=== PATIENT | female | born 1955 | race Caucasian/White ===

== ENCOUNTER 2022-04-07 08:41 | Inpatient (IN) ==
--- NOTE | 2022-04-07 09:55 | DR.CONMALE ---
HPI Time Seen Time Seen by Provider: 04/07/22 09:40 Complaint Self Treatment fo Chief Complaint: ZOFRAN Timing Onset of Chief Complaint: 04/02/22 PMH PMH Past Medical History: Yes Past Medical History: Arthritis and Dyslipidemia Past Surgical History: Yes Past Surgical History Comment: BURN SURGERY, TUBAL Family History History of Family Medical Conditions: No Social History Does patient currently use any type of tobacco product: Yes Have you used tobacco products in the last 12 months: Yes Type of Tobacco Use: Cigarettes Does any household member use tobacco: No Alcohol Use: Rarely Do you use any recreational Drugs:: No Lives With: Spouse Lives Where: Home Infectious screening In the last 2 months have you had wt loss of >10#?: NO Have you had fever, night sweats or hemotysis?: No Have you traveled outside the country in the last 6 months?: No Isolation: Droplet PE Vital Signs Vital Signs: Temp Pulse Resp BP BP Pulse Ox O2 Del Method 11/09/18 14:26 161/70 04/07/22 08:43 98.0 F 101 H 20 95/60 96 Room Air ROR Labs Reviewed Result Diagrams: 04/11/22 04:20 04/11/22 04:20 Laboratory: WBC 12.5 X10^3/uL (3.6-10.0) H 04/07/22 10:20 RBC 5.52 X10^6/uL (3.5-5.4) H 04/07/22 10:20 Hgb 15.6 g/dL (12.0-16.0) 04/07/22 10:20 Hct 46.1 % (36.0-47.0) 04/07/22 10:20 MCV 83.6 fL (80.0-100.0) 04/07/22 10:20 MCH 28.2 pg (27.0-34.0) 04/07/22 10:20 MCHC 33.8 g/dL (33.0-35.0) 04/07/22 10:20 RDW 13.4 % (11.6-16.5) 04/07/22 10:20 Plt Count 307 X10^3/uL (150.0-450.0) 04/07/22 10:20 MPV 8.7 fL (7.4-11.0) 04/07/22 10:20 Neut % (Auto) 82.7 % (42.0-75.0) H 04/07/22 10:20 Lymph % (Auto) 11.7 % (21.0-51.0) L 04/07/22 10:20 [place] % (Auto) 5.0 % (0.0-13.0) 04/07/22 10:20 Eos % (Auto) 0.1 % (0.9-2.9) L 04/07/22 10:20 Baso % (Auto) 0.5 % (0.2-1.0) 04/07/22 10:20 Neut # (Auto) 10.3 x10^3/uL (2.2-4.8) H 04/07/22 10:20 Lymph # (Auto) 1.5 X10^3/uL (1.3-2.9) 04/07/22 10:20 [place] # (Auto) 0.6 x10^3/uL (0.3-0.8) 04/07/22 10:20 Eos # (Auto) 0.0 x10^3/uL (0.0-0.2) 04/07/22 10:20 Baso # (Auto) 0.1 X10^3/uL (0.0-0.1) 04/07/22 10:20 Absolute Nucleated RBC 0.1 /100WBC 04/07/22 10:20 Sodium 131 mmol/L (136-145) L 04/07/22 10:20 Corrected Sodium TNP 04/07/22 10:20 Potassium 3.6 mmol/L (3.5-5.1) 04/07/22 10:20 Chloride 95 mmol/L (98-107) L 04/07/22 10:20 Carbon Dioxide 27.1 mmol/L (21-32) 04/07/22 10:20 BUN 20 mg/dL (7-18) H 04/07/22 10:20 Creatinine 1.10 mg/dL (0.55-1.02) H 04/07/22 10:20 Est GFR (MDRD) Af Amer > 60 (>60) 04/07/22 10:20 Est GFR (MDRD) Non-Af 52 (>60) L 04/07/22 10:20 Glucose 96 mg/dL (65-99) 04/07/22 10:20 Calcium 9.1 mg/dL (8.5-10.1) 04/07/22 10:20 Corrected Calcium TNP 04/07/22 10:20 Total Bilirubin 0.60 mg/dL (0.2-1.0) 04/07/22 10:20 AST 22 Units/L (15-37) 04/07/22 10:20 ALT 18 Units/L (12-78) 04/07/22 10:20 Alkaline Phosphatase 98 Units/L (46-116) 04/07/22 10:20 Total Protein 7.9 g/dL (6.4-8.2) 04/07/22 10:20 Albumin 3.6 g/dL (3.4-5.0) 04/07/22 10:20 Globulin 4.3 g/dL (2.5-4.5) 04/07/22 10:20 Albumin/Globulin Ratio 0.8 Ratio (1.1-2.1) L 04/07/22 10:20 Amylase 19 Units/L (25-115) L 04/07/22 10:20 Lipase 51 Units/L (73-393) L 04/07/22 10:20 Specimen Type Clean catch urine 04/07/22 09:57 Urine Color Dark yellow (YELLOW) 04/07/22 09:57 Urine Appearance Hazy (CLEAR) 04/07/22 09:57 Urine pH 6.0 (5.0 - 8.0) 04/07/22 09:57 Ur Specific [place] 1.030 (1.000-1.030) 04/07/22 09:57 Urine Protein 3+ (NEGATIVE) 04/07/22 09:57 Urine Glucose (UA) Negative (NEGATIVE) 04/07/22 09:57 Urine Ketones 3+ (NEGATIVE) 04/07/22 09:57 Urine Blood 3+ (NEGATIVE) 04/07/22 09:57 Urine Nitrite Negative (NEGATIVE) 04/07/22 09:57 Urine Bilirubin 1+ (NEGATIVE) 04/07/22 09:57 Urine Urobilinogen 2+ (NORMAL) 04/07/22 09:57 Ur Leukocyte Esterase Negative (NEGATIVE) 04/07/22 09:57 Urine RBC 5-10 /HPF (0-3) A 04/07/22 09:57 Urine WBC 0-2 /HPF (0-5) 04/07/22 09:57 Ur Squamous Epith Cells Few /HPF (NEGATIVE) 04/07/22 09:57 Urine Bacteria Trace /HPF (NEGATIVE) 04/07/22 09:57 Hyaline Casts Many /LPF (NEGATIVE) 04/07/22 09:57 Urine Mucus Many /HPF (NEGATIVE) 04/07/22 09:57 Ur Culture Indicated? No/not indicated 04/07/22 09:57 SARS-CoV-2 (PCR) Negative (NEGATIVE) 04/07/22 10:57 Influenza Type A (PCR) Negative (NEGATIVE) 04/07/22 10:57 Influenza Type B (PCR) Negative (NEGATIVE) 04/07/22 10:57 RSV (PCR) Negative (NEGATIVE) 04/07/22 10:57 Opioid Opioid Risk Tool Age (Jose L box if 16-45): No Total: 0 Total Score Risk Category: Low Risk Copyright: Umesh MISHRA predicting aberrant behaviors Discharge Plan Discharge Plan Patient Disposition: 09 ADMITTED INPATIENT Condition: Stable
[2022-04-07] MEDS ORDERED: ZOFRAN INJ 4 MG VIAL IVP ONE (10:02)
[2022-04-07] MEDS ORDERED: NS 1,000 ML IV 1,000 ML ONE (10:04)
[2022-04-07] MEDS ORDERED: ZOFRAN INJ 4 MG VIAL ONE (10:04)
[2022-04-07 10:21] LABS: BILIRUBIN,URINE 1+ (NEGATIVE); BLOOD/HEMOGLOBIN,URINE 3+ (NEGATIVE); GLUCOSE, URINE NEGATIVE (NEGATIVE); KETONES,URINE 3+ (NEGATIVE); LEUKOCYTE ESTERASE ,URINE NEGATIVE (NEGATIVE); NITRITES,URINE NEGATIVE (NEGATIVE); PROTEIN,URINE 3+ (NEGATIVE); UROBILINOGEN,URINE 2+ (NORMAL)
[2022-04-07 10:32] LABS: BASOPHILS # (AUTO) 0.1 X10^3/uL (0.0-0.1); BASOPHILS % (AUTO) 0.5 % (0.2-1.0); EOSINOPHILS % (AUTO) 0.1 % (0.9-2.9); HEMATOCRIT 46.1 % (36.0-47.0); HEMOGLOBIN 15.6 g/dL (12.0-16.0); LYMPHOCYTES # (AUTO) 1.5 X10^3/uL (1.3-2.9); LYMPHOCYTES % (AUTO) 11.7 % (21.0-51.0); MEAN CORPUSCULAR HEMOGLOBIN 28.2 pg (27.0-34.0); MEAN CORPUSCULAR HGB CONC 33.8 g/dL (33.0-35.0); MEAN CORPUSCULAR VOLUME 83.6 fL (80.0-100.0); MEAN PLATELET VOLUME 8.7 fL (7.4-11.0); MONOCYTES # (AUTO) 0.6 x10^3/uL (0.3-0.8); NEUTROPHILS # (AUTO) 10.3 x10^3/uL (2.2-4.8); NEUTROPHILS % (AUTO) 82.7 % (42.0-75.0); RED BLOOD COUNT 5.52 X10^6/uL (3.5-5.4); RED CELL DISTRIBUTION WIDTH 13.4 % (11.6-16.5); WHITE BLOOD COUNT 12.5 X10^3/uL (3.6-10.0)
[2022-04-07 10:33] LABS: APPEARANCE,URINE HAZY (CLEAR); COLOR,URINE DARK YELLOW (YELLOW); SQUAMOUS EPITHELIAL CELL,UR FEW /HPF (NEGATIVE)
[2022-04-07 10:34] LABS: BACTERIA,URINE TRACE /HPF (NEGATIVE); HYALINE CASTS, URINE MANY /LPF (NEGATIVE)
--- NOTE | 2022-04-07 10:44 | CT ---
HISTORYAbdominal painSTUDYCT abdomen and pelvis without contrastCOMPARISONNoneTECHNIQUEMultiple axial images of the abdomen and pelvis were obtained from the lung bases to the pubic symphysis without the administration of IV contrast. Dose reduction techniques including Automated Exposure Control (AEC) and adjustment of mA and kV were utilized.FINDINGSThe visualized portions of the lung bases are unremarkable . The liver, spleen, pancreas, kidneys, and adrenal glands are unremarkable in their CT appearance. The gallbladder is unremarkable in its CT appearance . No significant mesenteric lymphadenopathy or stranding can be observed. No free fluid or free air is seen within the abdomen. Multiple air-filled loops of small bowel with scattered air-fluid levels are observed. In addition, distal colonic gas and colonic distension is noted to be present. No definite transition point within the small bowel can be identified. However, soft tissue density within the distal sigmoid colon is noted to be present and underlying mass cannot be excluded. Correlation with recent colonoscopy would be of benefit.. The colon is unremarkable. Specifically, there is no diverticulosis noted within the sigmoid colon. The urinary bladder is grossly unremarkable. The bony structures are grossly intact.IMPRESSIONSoft tissue density within the sigmoid colon is observed with proximal colonic distension and associated small-bowel air-filled loops are noted. Continued evaluation with direct visualization or correlation with recent colonoscopy is requested.Electronically signed by: SHANT EVERETT (Apr 07, 2022 10:42:20)
[2022-04-07 10:45] LABS: ALANINE AMINOTRANSFERASE 18 Units/L (12-78); ALBUMIN 3.6 g/dL (3.4-5.0); ALKALINE PHOSPHATASE 98 Units/L (46-116); AMYLASE 19 Units/L (25-115); ASPARTATE AMINO TRANSFERASE 22 Units/L (15-37); BLOOD UREA NITROGEN 20 mg/dL (7-18); CALCIUM 9.1 mg/dL (8.5-10.1); CARBON DIOXIDE 27.1 mmol/L (21-32); CHLORIDE 95 mmol/L (98-107); LIPASE 51 Units/L (73-393); SODIUM 131 mmol/L (136-145); TOTAL PROTEIN 7.9 g/dL (6.4-8.2); eGFR NON BLACK RACES 52 (>60)
[2022-04-07] MEDS ORDERED: NS 1,000 ML IV 1,000 ML IV SCH (11:00)
[2022-04-07] MEDS ORDERED: FLEET ENEMA ADULT PR ONE (13:49)
[2022-04-07] MEDS ORDERED: DILAUDID INJ ONE (14:08)
[2022-04-07] MEDS: DILAUDID INJ IVP PRN ×2 (14:26→22:55)
[2022-04-07] MEDS ORDERED: FLEET ENEMA ADULT ONE (16:32)
--- NOTE | 2022-04-07 16:55 | RAD ---
HISTORYNG tube placementSTUDYKUBCOMPARISONCT abdomen/pelvis from April 07, 2022TECHNIQUEAP supine and upright projections, 2 viewsFINDINGSGaseous distension of bowel.NG tube tip is near the GE junction; recommend advancement by 11 cm.No gross free.No abnormal calcifications.No acute osseous abnormality.Imaged portion of the lungs are clear.IMPRESSIONNG tube tip is near the GE junction; recommend advancement by 11 cm.Electronically signed by: Rick Gomez (Apr 07, 2022 16:54:52)
[2022-04-07] MEDS ORDERED: MORPHINE SULFATE INJ 2 MG INJ IVP PRN (17:33)
--- NOTE | 2022-04-07 17:52 | DR.H&P ---
H&P History & Physical for Day of: H&P Date: 04/07/22 Chief Complaint Chief Complaint: Abdominal distention. Allergies Allergies Allergy/AdvReac Type Severity Reaction Status Date / Time No Known Drug Allergies Allergy Verified 11/09/18 13:42 History of Present Illness History of Present Illness: 66 yo female in otherwise good health except for smoking of > 1 pack of cigarettes, who present s with one day of abdominal distention with some nausea and vomiting. Evaluated in ER and CT showed air filled loops of small bowel , no transition point with dilated colon down to distal sigmoid colon . Past Medical History Past Medical History: Arthritis and Dyslipidemia Past Surgical History Surgical History: Other Family History Family Medical History: Diabetes Mellitus, Cancer, [place] and Hypertension Social History Does patient currently use any type of tobacco product: Yes Have you used tobacco products in the last 12 months: Yes Type of Tobacco Use: Cigarettes How many years tobacco product used: 50 Packs per day or dips/chews per day: one Does any household member use tobacco: Yes Alcohol Use: Occasionally Drug Use: None Medications Home Medications: No Known Drug Allergies Allergy (Verified 11/09/18 13:42) CONTINUE taking the following medications atorvastatin 20 mg tablet 1 tab PO QDAY 04/07/22 [History] ergocalciferol (vitamin D2) 1,250 mcg (50,000 unit) capsule 1 cap PO QWEEK 04/07/22 [History] ondansetron 8 mg disintegrating tablet 1 tab PO TID 04/07/22 [History] Labs Result Diagrams: 04/07/22 10:20 04/07/22 10:20 Labs: Laboratory WBC 12.5 X10^3/uL (3.6-10.0) H 04/07/22 10:20 RBC 5.52 X10^6/uL (3.5-5.4) H 04/07/22 10:20 Hgb 15.6 g/dL (12.0-16.0) 04/07/22 10:20 Hct 46.1 % (36.0-47.0) 04/07/22 10:20 MCV 83.6 fL (80.0-100.0) 04/07/22 10:20 MCH 28.2 pg (27.0-34.0) 04/07/22 10:20 MCHC 33.8 g/dL (33.0-35.0) 04/07/22 10:20 RDW 13.4 % (11.6-16.5) 04/07/22 10:20 Plt Count 307 X10^3/uL (150.0-450.0) 04/07/22 10:20 MPV 8.7 fL (7.4-11.0) 04/07/22 10:20 Neut % (Auto) 82.7 % (42.0-75.0) H 04/07/22 10:20 Lymph % (Auto) 11.7 % (21.0-51.0) L 04/07/22 10:20 [place] % (Auto) 5.0 % (0.0-13.0) 04/07/22 10:20 Eos % (Auto) 0.1 % (0.9-2.9) L 04/07/22 10:20 Baso % (Auto) 0.5 % (0.2-1.0) 04/07/22 10:20 Neut # (Auto) 10.3 x10^3/uL (2.2-4.8) H 04/07/22 10:20 Lymph # (Auto) 1.5 X10^3/uL (1.3-2.9) 04/07/22 10:20 [place] # (Auto) 0.6 x10^3/uL (0.3-0.8) 04/07/22 10:20 Eos # (Auto) 0.0 x10^3/uL (0.0-0.2) 04/07/22 10:20 Baso # (Auto) 0.1 X10^3/uL (0.0-0.1) 04/07/22 10:20 Absolute Nucleated RBC 0.1 /100WBC 04/07/22 10:20 Sodium 131 mmol/L (136-145) L 04/07/22 10:20 Corrected Sodium TNP 04/07/22 10:20 Potassium 3.6 mmol/L (3.5-5.1) 04/07/22 10:20 Chloride 95 mmol/L (98-107) L 04/07/22 10:20 Carbon Dioxide 27.1 mmol/L (21-32) 04/07/22 10:20 BUN 20 mg/dL (7-18) H 04/07/22 10:20 Creatinine 1.10 mg/dL (0.55-1.02) H 04/07/22 10:20 Est GFR (MDRD) Af Amer > 60 (>60) 04/07/22 10:20 Est GFR (MDRD) Non-Af 52 (>60) L 04/07/22 10:20 Glucose 96 mg/dL (65-99) 04/07/22 10:20 Calcium 9.1 mg/dL (8.5-10.1) 04/07/22 10:20 Corrected Calcium TNP 04/07/22 10:20 Total Bilirubin 0.60 mg/dL (0.2-1.0) 04/07/22 10:20 AST 22 Units/L (15-37) 04/07/22 10:20 ALT 18 Units/L (12-78) 04/07/22 10:20 Alkaline Phosphatase 98 Units/L (46-116) 04/07/22 10:20 Total Protein 7.9 g/dL (6.4-8.2) 04/07/22 10:20 Albumin 3.6 g/dL (3.4-5.0) 04/07/22 10:20 Globulin 4.3 g/dL (2.5-4.5) 04/07/22 10:20 Albumin/Globulin Ratio 0.8 Ratio (1.1-2.1) L 04/07/22 10:20 Amylase 19 Units/L (25-115) L 04/07/22 10:20 Lipase 51 Units/L (73-393) L 04/07/22 10:20 Specimen Type Clean catch urine 04/07/22 09:57 Urine Color Dark yellow (YELLOW) 04/07/22 09:57 Urine Appearance Hazy (CLEAR) 04/07/22 09:57 Urine pH 6.0 (5.0 - 8.0) 04/07/22 09:57 Ur Specific [place] 1.030 (1.000-1.030) 04/07/22 09:57 Urine Protein 3+ (NEGATIVE) 04/07/22 09:57 Urine Glucose (UA) Negative (NEGATIVE) 04/07/22 09:57 Urine Ketones 3+ (NEGATIVE) 04/07/22 09:57 Urine Blood 3+ (NEGATIVE) 04/07/22 09:57 Urine Nitrite Negative (NEGATIVE) 04/07/22 09:57 Urine Bilirubin 1+ (NEGATIVE) 04/07/22 09:57 Urine Urobilinogen 2+ (NORMAL) 04/07/22 09:57 Ur Leukocyte Esterase Negative (NEGATIVE) 04/07/22 09:57 Urine RBC 5-10 /HPF (0-3) A 04/07/22 09:57 Urine WBC 0-2 /HPF (0-5) 04/07/22 09:57 Ur Squamous Epith Cells Few /HPF (NEGATIVE) 04/07/22 09:57 Urine Bacteria Trace /HPF (NEGATIVE) 04/07/22 09:57 Hyaline Casts Many /LPF (NEGATIVE) 04/07/22 09:57 Urine Mucus Many /HPF (NEGATIVE) 04/07/22 09:57 Ur Culture Indicated? No/not indicated 04/07/22 09:57 SARS-CoV-2 (PCR) Negative (NEGATIVE) 04/07/22 10:57 Influenza Type A (PCR) Negative (NEGATIVE) 04/07/22 10:57 Influenza Type B (PCR) Negative (NEGATIVE) 04/07/22 10:57 RSV (PCR) Negative (NEGATIVE) 04/07/22 10:57 Review of Systems Constitutional: See HPI Eyes: No Symptoms Reported ENT: No Symptoms Reported Respiratory: No Symptoms Reported Cardiovascular: No Symptoms Reported Gastrointestinal: See HPI Genitourinary: No Symptoms Reported Musculoskeletal: No Symptoms Reported Skin: No Symptoms Reported Neurological: No Symptoms Reported Physical Exam Vital Signs: Temperature 98.5 F Pulse Rate [Left Brachial] 85 Pulse Rate 101 Respiratory Rate 18 Blood Pressure [Right Arm] 116/65 Blood Pressure [Left Arm] 161/70 Blood Pressure 95/60 O2 Sat by Pulse Oximetry 95 Oriented: Normal, Time, Person and Place Eyes: Normal Ear: Normal Nose: Normal Throat: Normal Respiratory: Clear Throughout Cardiovascular: Normal : Normal Auscultation: Bowel Sounds: Absent Palpation: Normal Tenderness: Other (mildly and diffusely tender with no rebound) Skin: Normal Musculoskeletal: Normal Psychiatric: Normal Mood Description: Calm Affect: Normal Speech Pattern: Clear Assessment/Plan (1) Colon obstruction: Status: Acute Plan: Admit , NG tube, enemas , probable colonoscopy/ Review H&P Reviewed: Yes Patient was examined?: Yes
[2022-04-07] MEDS: PEPCID 20 MG VIAL 20 MG in NS 50 ML IV 50 ML IV SCH ×2 (17:56→21:47)
[2022-04-07] MEDS: NS 1,000 ML IV 1,000 ML IV SCH (18:20)
[2022-04-07] MEDS: ZOFRAN INJ 4 MG VIAL IVP PRN (19:23)
--- NOTE | 2022-04-07 19:49 | RAD ---
HISTORYREPOSITION OF NG TUBESTUDYKUBCOMPARISONNone availableTECHNIQUEKUB, 2 imagesFINDINGSGaseous distension of bowel.NG tube tip is near the GE junction; recommend advancement by 8 cm.No gross free.No abnormal calcifications.No acute osseous abnormality.Imaged portion of the lungs are clear.IMPRESSIONNG tube tip is near the GE junction; recommend advancement by 8 cm.Electronically signed by: Rick Gomez (Apr 07, 2022 19:48:18)
[2022-04-07] MEDS ORDERED: MILK OF MAGNESIA PO SCH (21:00)
[2022-04-07] MEDS ORDERED: COLACE CAP 100 MG PO SCH (21:00)
--- NOTE | 2022-04-07 21:11 | RAD ---
STUDY: KUBCOMPARISON: NoneHISTORY: ng tube placementFINDINGS:The tip and side port of the enteric tube is seen below the diaphragm in the region of the stomach. Large amount of enteric gas is seen throughout the colon.IMPRESSION:THE TIP AND SIDE PORT OF THE ENTERIC TUBE IS IN THE REGION OF THE STOMACH. br.br
--- NOTE | 2022-04-07 22:40 | RAD ---
HISTORYCOLON OBSTRUCTIONSTUDYACUTE ABDOMEN SERIESCOMPARISONNone availableTECHNIQUEAP supine and upright abdominal radiographs with chest radiography, 3 images.FINDINGSMultiple gas-filled loops of largely distended small and large bowel.Esophagogastric tube tip is at the GE junction.No gross free air.No abnormal calcifications.No acute osseous abnormality.Lungs are clear of focal airspace disease.No cardiomegaly.No pneumothorax.No pleural effusion.IMPRESSION1. Multiple gas-filled loops of largely distended small and large bowel.2. Esophagogastric tube tip is at the GE junction. NG tube was advanced on subsequent exams.Electronically signed by: Rick Gomez (Apr 07, 2022 22:38:34)
[2022-04-07] MEDS: REGLAN INJ 10 MG VIAL IVP PRN (22:55)
[2022-04-08] MEDS: NS 1,000 ML IV 1,000 ML IV SCH ×4 (04:46→23:22)
[2022-04-08] MEDS: DILAUDID INJ IVP PRN ×4 (05:12→20:15)
[2022-04-08] MEDS: ZOFRAN INJ 4 MG VIAL IVP PRN ×2 (05:16→20:20)
[2022-04-08 05:21] LABS: BASOPHILS % (AUTO) 0.2 % (0.2-1.0); HEMATOCRIT 41.5 % (36.0-47.0); HEMOGLOBIN 14.2 g/dL (12.0-16.0); LYMPHOCYTES # (AUTO) 1.1 X10^3/uL (1.3-2.9); LYMPHOCYTES % (AUTO) 9.4 % (21.0-51.0); MEAN CORPUSCULAR HEMOGLOBIN 28.3 pg (27.0-34.0); MEAN CORPUSCULAR HGB CONC 34.1 g/dL (33.0-35.0); MEAN CORPUSCULAR VOLUME 82.9 fL (80.0-100.0); MEAN PLATELET VOLUME 9.1 fL (7.4-11.0); MONOCYTES # (AUTO) 0.8 x10^3/uL (0.3-0.8); MONOCYTES % (AUTO) 7.1 % (0.0-13.0); NEUTROPHILS # (AUTO) 9.8 x10^3/uL (2.2-4.8); NEUTROPHILS % (AUTO) 83.3 % (42.0-75.0); RED BLOOD COUNT 5.01 X10^6/uL (3.5-5.4); RED CELL DISTRIBUTION WIDTH 13.6 % (11.6-16.5); WHITE BLOOD COUNT 11.7 X10^3/uL (3.6-10.0)
[2022-04-08 05:37] LABS: ALANINE AMINOTRANSFERASE 16 Units/L (12-78); ALKALINE PHOSPHATASE 81 Units/L (46-116); ASPARTATE AMINO TRANSFERASE 18 Units/L (15-37); BLOOD UREA NITROGEN 26 mg/dL (7-18); CALCIUM 8.3 mg/dL (8.5-10.1); CARBON DIOXIDE 23.9 mmol/L (21-32); CHLORIDE 102 mmol/L (98-107); COR CA(FOR HYPOALB) 9.1 mg/dL (8.5-10.1); CREATININE 0.85 mg/dL (0.55-1.02); SODIUM 134 mmol/L (136-145); TOTAL PROTEIN 6.4 g/dL (6.4-8.2); eGFR NON BLACK RACES > 60 (>60)
[2022-04-08] MEDS: PEPCID 20 MG VIAL 20 MG in NS 50 ML IV 50 ML IV SCH ×2 (09:51→20:14)
[2022-04-08] MEDS ORDERED: FLEET ENEMA ADULT PR ONE (09:59)
[2022-04-08 10:15] VITALS: BMI 28.5
--- NOTE | 2022-04-08 11:02 | DR.H&P ---
H&P History & Physical for Day of: H&P Date: 04/08/22 Chief Complaint Chief Complaint: Abdominal pain/distention Allergies Allergies Allergy/AdvReac Type Severity Reaction Status Date / Time No Known Drug Allergies Allergy Verified 11/09/18 13:42 History of Present Illness History of Present Illness: Pt is a 66 year old female presenting with abdominal pain, distention, and decreased bowel movements for the past 2-3 days. Labs/imaging: Wbc 11.7, Hgb 14.2, Plt 311, Na 134, K 3.6, Creatinine 0.85, Glucose 84, CEA pending, UA negative, COVID-19 negative, CTAP was obtained that revealed: Soft tissue density within the sigmoid colon is observed with proximal colonic distension and associated small-bowel air-filled loops are noted. Continued evaluation with direct visualization or correlation with recent colonoscopy is requested. Pt was admitted for colon obstruction. General surgery consulted. Pt has NG tube placed and will be kept NPO. She did have enema ye sterday that she felt helped a little and will order another one today. Surgery plan for possible colonoscopy. Continue with current treatment plan. Closely monitor and follow up labs and imaging in the morning. Past Medical History Past Medical History: Arthritis and Dyslipidemia Past Surgical History Surgical History: Other Family History Family Medical History: Diabetes Mellitus, Cancer, [place] and Hypertension Social History Does patient currently use any type of tobacco product: Yes Have you used tobacco products in the last 12 months: Yes Type of Tobacco Use: Cigarettes How many years tobacco product used: 50 Packs per day or dips/chews per day: one Does any household member use tobacco: Yes Alcohol Use: Occasionally Drug Use: None Medications Home Medications: No Known Drug Allergies Allergy (Verified 11/09/18 13:42) CONTINUE taking the following medications atorvastatin 20 mg tablet 1 tab PO QDAY 04/07/22 [History] ergocalciferol (vitamin D2) 1,250 mcg (50,000 unit) capsule 1 cap PO QWEEK 04/07/22 [History] ondansetron 8 mg disintegrating tablet 1 tab PO TID 04/07/22 [History] Labs Result Diagrams: 04/08/22 04:48 04/08/22 04:48 Labs: Laboratory WBC 11.7 X10^3/uL (3.6-10.0) H 04/08/22 04:48 RBC 5.01 X10^6/uL (3.5-5.4) 04/08/22 04:48 Hgb 14.2 g/dL (12.0-16.0) 04/08/22 04:48 Hct 41.5 % (36.0-47.0) 04/08/22 04:48 MCV 82.9 fL (80.0-100.0) 04/08/22 04:48 MCH 28.3 pg (27.0-34.0) 04/08/22 04:48 MCHC 34.1 g/dL (33.0-35.0) 04/08/22 04:48 RDW 13.6 % (11.6-16.5) 04/08/22 04:48 Plt Count 311 X10^3/uL (150.0-450.0) 04/08/22 04:48 MPV 9.1 fL (7.4-11.0) 04/08/22 04:48 Neut % (Auto) 83.3 % (42.0-75.0) H 04/08/22 04:48 Lymph % (Auto) 9.4 % (21.0-51.0) L 04/08/22 04:48 [place] % (Auto) 7.1 % (0.0-13.0) 04/08/22 04:48 Eos % (Auto) 0.0 % (0.9-2.9) L 04/08/22 04:48 Baso % (Auto) 0.2 % (0.2-1.0) 04/08/22 04:48 Neut # (Auto) 9.8 x10^3/uL (2.2-4.8) H 04/08/22 04:48 Lymph # (Auto) 1.1 X10^3/uL (1.3-2.9) L 04/08/22 04:48 [place] # (Auto) 0.8 x10^3/uL (0.3-0.8) 04/08/22 04:48 Eos # (Auto) 0.0 x10^3/uL (0.0-0.2) 04/08/22 04:48 Baso # (Auto) 0.0 X10^3/uL (0.0-0.1) 04/08/22 04:48 Absolute Nucleated RBC 0.0 /100WBC 04/08/22 04:48 Sodium 134 mmol/L (136-145) L 04/08/22 04:48 Corrected Sodium TNP 04/08/22 04:48 Potassium 3.6 mmol/L (3.5-5.1) 04/08/22 04:48 Chloride 102 mmol/L (98-107) 04/08/22 04:48 Carbon Dioxide 23.9 mmol/L (21-32) 04/08/22 04:48 BUN 26 mg/dL (7-18) H 04/08/22 04:48 Creatinine 0.85 mg/dL (0.55-1.02) 04/08/22 04:48 Est GFR (MDRD) Af Amer > 60 (>60) 04/08/22 04:48 Est GFR (MDRD) Non-Af > 60 (>60) 04/08/22 04:48 Glucose 84 mg/dL (65-99) 04/08/22 04:48 Calcium 8.3 mg/dL (8.5-10.1) L 04/08/22 04:48 Corrected Calcium 9.1 mg/dL (8.5-10.1) 04/08/22 04:48 Total Bilirubin 0.50 mg/dL (0.2-1.0) 04/08/22 04:48 AST 18 Units/L (15-37) 04/08/22 04:48 ALT 16 Units/L (12-78) 04/08/22 04:48 Alkaline Phosphatase 81 Units/L (46-116) 04/08/22 04:48 Total Protein 6.4 g/dL (6.4-8.2) 04/08/22 04:48 Albumin 3.0 g/dL (3.4-5.0) L 04/08/22 04:48 Globulin 3.4 g/dL (2.5-4.5) 04/08/22 04:48 Albumin/Globulin Ratio 0.9 Ratio (1.1-2.1) L 04/08/22 04:48 Amylase 19 Units/L (25-115) L 04/07/22 10:20 Lipase 51 Units/L (73-393) L 04/07/22 10:20 Specimen Type Clean catch urine 04/07/22 09:57 Urine Color Dark yellow (YELLOW) 04/07/22 09:57 Urine Appearance Hazy (CLEAR) 04/07/22 09:57 Urine pH 6.0 (5.0 - 8.0) 04/07/22 09:57 Ur Specific [place] 1.030 (1.000-1.030) 04/07/22 09:57 Urine Protein 3+ (NEGATIVE) 04/07/22 09:57 Urine Glucose (UA) Negative (NEGATIVE) 04/07/22 09:57 Urine Ketones 3+ (NEGATIVE) 04/07/22 09:57 Urine Blood 3+ (NEGATIVE) 04/07/22 09:57 Urine Nitrite Negative (NEGATIVE) 04/07/22 09:57 Urine Bilirubin 1+ (NEGATIVE) 04/07/22 09:57 Urine Urobilinogen 2+ (NORMAL) 04/07/22 09:57 Ur Leukocyte Esterase Negative (NEGATIVE) 04/07/22 09:57 Urine RBC 5-10 /HPF (0-3) A 04/07/22 09:57 Urine WBC 0-2 /HPF (0-5) 04/07/22 09:57 Ur Squamous Epith Cells Few /HPF (NEGATIVE) 04/07/22 09:57 Urine Bacteria Trace /HPF (NEGATIVE) 04/07/22 09:57 Hyaline Casts Many /LPF (NEGATIVE) 04/07/22 09:57 Urine Mucus Many /HPF (NEGATIVE) 04/07/22 09:57 Ur Culture Indicated? No/not indicated 04/07/22 09:57 SARS-CoV-2 (PCR) Negative (NEGATIVE) 04/07/22 10:57 Influenza Type A (PCR) Negative (NEGATIVE) 04/07/22 10:57 Influenza Type B (PCR) Negative (NEGATIVE) 04/07/22 10:57 RSV (PCR) Negative (NEGATIVE) 04/07/22 10:57 Review of Systems Constitutional: See HPI Eyes: No Symptoms Reported ENT: No Symptoms Reported Respiratory: No Symptoms Reported Cardiovascular: No Symptoms Reported Gastrointestinal: See HPI, Nausea, Abdominal Pain and Constipation Genitourinary: No Symptoms Reported Musculoskeletal: No Symptoms Reported Skin: No Symptoms Reported Neurological: No Symptoms Reported Physical Exam Vital Signs: Temperature 98.9 F Pulse Rate [Left Brachial] 85 Pulse Rate 97 Respiratory Rate 20 Blood Pressure [Right Arm] 116/65 Blood Pressure [Left Arm] 161/70 Blood Pressure 92/52 O2 Sat by Pulse Oximetry 93 Oriented: Normal, Time, Person and Place Eyes: Normal Ear: Normal Throat: Normal Respiratory: Clear Throughout Cardiovascular: Normal : Normal Auscultation: Bowel Sounds: Decreased Palpation: Other (distended abdomen) Tenderness: Diffuse and Moderate Skin: Normal Musculoskeletal: Normal Psychiatric: Normal Mood Description: Calm Assessment/Plan (1) Colon obstruction: Narrative Support Text: Surgery following Continue medical management Status: Acute Review H&P Reviewed: Yes Patient was examined?: Yes
--- NOTE | 2022-04-08 18:55 | NOTE.SOAP ---
Soap Note Note for Day of Date of Exam: 04/08/22 Subjective Data Subjective Data: Still distended , NG with very little output. No flatus Objective Data Temperature: 98.5 F Pulse Rate: 97 Respiratory Rate: 20 Blood Pressure: 144/58 O2 Sat by Pulse Oximetry: 92 Objective Data: Abdomen still distended with no tenderness. Assessment Assessment: Distal sigmoid obstruction with distention Plan Plan: Repeat enemas. Plan colonoscopy tomorrow
[2022-04-09] MEDS: DILAUDID INJ IVP PRN ×6 (02:05→21:11)
[2022-04-09] MEDS: ZOFRAN INJ 4 MG VIAL IVP PRN ×4 (02:05→21:10)
[2022-04-09] MEDS ORDERED: FLEET ENEMA ADULT PR ONE (05:00)
[2022-04-09 05:03] LABS: BASOPHILS % (AUTO) 0.2 % (0.2-1.0); EOSINOPHILS % (AUTO) 0.3 % (0.9-2.9); HEMATOCRIT 37.9 % (36.0-47.0); LYMPHOCYTES # (AUTO) 0.6 X10^3/uL (1.3-2.9); LYMPHOCYTES % (AUTO) 13.4 % (21.0-51.0); MEAN CORPUSCULAR HEMOGLOBIN 28.5 pg (27.0-34.0); MEAN CORPUSCULAR HGB CONC 34.3 g/dL (33.0-35.0); MEAN PLATELET VOLUME 9.2 fL (7.4-11.0); MONOCYTES # (AUTO) 0.8 x10^3/uL (0.3-0.8); NEUTROPHILS # (AUTO) 3.1 x10^3/uL (2.2-4.8); NEUTROPHILS % (AUTO) 69.1 % (42.0-75.0); RED BLOOD COUNT 4.56 X10^6/uL (3.5-5.4); RED CELL DISTRIBUTION WIDTH 13.8 % (11.6-16.5); WHITE BLOOD COUNT 4.5 X10^3/uL (3.6-10.0)
[2022-04-09] MEDS: NS 1,000 ML IV 1,000 ML IV SCH ×4 (05:08→19:36)
[2022-04-09 05:12] LABS: ALANINE AMINOTRANSFERASE 16 Units/L (12-78); ALBUMIN 2.8 g/dL (3.4-5.0); ALKALINE PHOSPHATASE 68 Units/L (46-116); ASPARTATE AMINO TRANSFERASE 16 Units/L (15-37); BLOOD UREA NITROGEN 28 mg/dL (7-18); CALCIUM 7.9 mg/dL (8.5-10.1); CARBON DIOXIDE 24.8 mmol/L (21-32); CHLORIDE 104 mmol/L (98-107); COR CA(FOR HYPOALB) 8.9 mg/dL (8.5-10.1); SODIUM 139 mmol/L (136-145); TOTAL PROTEIN 5.9 g/dL (6.4-8.2); eGFR NON BLACK RACES > 60 (>60)
--- NOTE | 2022-04-09 06:46 | RAD ---
HISTORYAbdominal [id number]/21/[address] abdomen pelvisFINDINGSOnce again noted is dilatation of the colon ascending through distal sigmoid with increased number of dilated air filled small bowel loops when compared to the prior examination. Considering the findings on the recent CT, sigmoid colon obstruction with reflux of air into the small bowel not excluded. Ileus not excluded. No abnormal masses or abnormal calcifications are identified. Regional skeleton is intact.IMPRESSIONDilatation of the colon to the level of the mid to distal sigmoid with increasing number of dilated air filled small bowel loops. Considering the findings on the recent CT abdomen pelvis, distal colonic obstruction not excluded. Ileus not excluded.Electronically signed by: MILAN ROBERTS (Apr 09, 2022 06:45:09)
[2022-04-09] MEDS ORDERED: NS 50 ML IV 50 ML IV ONE (08:06)
[2022-04-09] MEDS: PEPCID 20 MG VIAL 20 MG in NS 50 ML IV 50 ML IV SCH ×2 (08:26→20:34)
[2022-04-09] MEDS: REGLAN INJ 10 MG VIAL IVP PRN (10:33)
[2022-04-09] MEDS ORDERED: DIPRIVAN VIAL 20 ML ONE (10:57)
[2022-04-09] MEDS ORDERED: NEO-SYNEPHRINE INJ ONE (11:09)
--- NOTE | 2022-04-09 11:29 | OR.IMMED ---
IMMEDIATE POST-OP NOTE Immediate Post-Op Note Pre-Op Diagnosis: Distal colon obstruction Post-Op Diagnosis: Obstructing colon mass of sigmoid colon 60 cm from anal verge, probable colon cancer Procedure: Flexible colonoscopy Description of Procedure: see operative summary Surgeon/Assistant Professor Sculpture: [place] Findings: as above Estimated Blood Loss: none Complications: none Post Hospital Plans and Medications: to CCU , Continue NG tube and NPO . Will require sigmoid colon resection. Final Diagnosis: as above
--- NOTE | 2022-04-09 15:07 | RAD ---
EXAM: CHEST X-RAYHISTORY: Preoperative evaluation for cardiac and respiratory status. Bowel obstruction.TECHNIQUE: AP chest x-ray.COMPARISON: None available (CXR dated November 07, 2018 not available at this time).FINDINGS:A nasogastric tube is noted with the distal tip out of [id number] beyond the proximal body of the stomach, presumably within the distal body of the stomach.The heart size and mediastinum are within normal limits. The lung rao and costophrenic angles are clear. There is no acute parenchymal infiltrate, pleural effusion, or pneumothorax seen. The visualized bony structures are within normal limits.IMPRESSION:1. No evidence for acute cardiopulmonary disease seen.2. No evidence for acute tuberculosis or other communicable diseases.Electronically signed by: Juan Medrano (Apr 09, 2022 15:05:34)
--- NOTE | 2022-04-09 15:20 | PCM.PROG ---
Progress Note Progress Note for Day of Date of Exam: 04/09/22 Subjective Subjective: Patient had a colonoscopy earlier today. It showed what looked like to be an obstructing colon cancer in the distal sigmoid colon. Originally the surgery for resection of it was going to take place tomorrow but the patient has discussed this with her family and they have decided that they want to be transferred to a larger Medical Center to have this taken care of. I suggested [facility] in [place], [place] and they are agreeable to that. We have called and they have put the patient on the list however there are no beds at the hospital at this time. We are currently awaiting for a room to come available and at that time plan on transferring the patient later today or in the morning. Otherwise her pain is better controlled and we are controlling her nausea as well at this time. Past Medical Family Social History Allergies: Allergies No Known Drug Allergies Allergy (Verified 11/09/18 13:42) Vital Signs and I&O's Vital Signs: Temperature 98.2 F Pulse Rate [Left Brachial] 85 Pulse Rate 99 Respiratory Rate 17 Blood Pressure [Right Arm] 116/65 Blood Pressure [Left Arm] 161/70 Blood Pressure 128/72 O2 Sat by Pulse Oximetry 89 Intake and Output: Intake & Output 04/07/22 04/08/22 04/09/22 04/10/22 11:59 11:59 11:59 11:59 Intake Total 1950 / 1950 1742 / 1742 Output Total 75 / 75 110 / 110 Balance 1876 / 1876 1632 / 1632 Physical Exam Oriented: Normal, Time, Person and Place Eyes: Normal Ear: Normal Nose: Normal Throat: Normal Respiratory: Normal Cardiovascular: Normal : Normal Auscultation: Bowel Sounds: Decreased Tenderness: Diffuse and Moderate Skin: Normal Musculoskeletal: Normal Psychiatric: Normal Mood Description: Calm Affect: Normal Speech Pattern: Clear and Appropriate Laboratory and Diagnostics Result Diagrams: 04/09/22 04:15 04/09/22 04:15 Labs: Laboratory WBC 4.5 X10^3/uL (3.6-10.0) 04/09/22 04:15 RBC 4.56 X10^6/uL (3.5-5.4) 04/09/22 04:15 Hgb 13.0 g/dL (12.0-16.0) 04/09/22 04:15 Hct 37.9 % (36.0-47.0) 04/09/22 04:15 MCV 83.0 fL (80.0-100.0) 04/09/22 04:15 MCH 28.5 pg (27.0-34.0) 04/09/22 04:15 MCHC 34.3 g/dL (33.0-35.0) 04/09/22 04:15 RDW 13.8 % (11.6-16.5) 04/09/22 04:15 Plt Count 275 X10^3/uL (150.0-450.0) 04/09/22 04:15 MPV 9.2 fL (7.4-11.0) 04/09/22 04:15 Neut % (Auto) 69.1 % (42.0-75.0) 04/09/22 04:15 Lymph % (Auto) 13.4 % (21.0-51.0) L 04/09/22 04:15 [place] % (Auto) 17.0 % (0.0-13.0) H 04/09/22 04:15 Eos % (Auto) 0.3 % (0.9-2.9) L 04/09/22 04:15 Baso % (Auto) 0.2 % (0.2-1.0) 04/09/22 04:15 Neut # (Auto) 3.1 x10^3/uL (2.2-4.8) 04/09/22 04:15 Lymph # (Auto) 0.6 X10^3/uL (1.3-2.9) L 04/09/22 04:15 [place] # (Auto) 0.8 x10^3/uL (0.3-0.8) 04/09/22 04:15 Eos # (Auto) 0.0 x10^3/uL (0.0-0.2) 04/09/22 04:15 Baso # (Auto) 0.0 X10^3/uL (0.0-0.1) 04/09/22 04:15 Absolute Nucleated RBC 0.0 /100WBC 04/09/22 04:15 Sodium 139 mmol/L (136-145) 04/09/22 04:15 Corrected Sodium TNP 04/09/22 04:15 Potassium 3.6 mmol/L (3.5-5.1) 04/09/22 04:15 Chloride 104 mmol/L (98-107) 04/09/22 04:15 Carbon Dioxide 24.8 mmol/L (21-32) 04/09/22 04:15 BUN 28 mg/dL (7-18) H 04/09/22 04:15 Creatinine 0.80 mg/dL (0.55-1.02) 04/09/22 04:15 Est GFR (MDRD) Af Amer > 60 (>60) 04/09/22 04:15 Est GFR (MDRD) Non-Af > 60 (>60) 04/09/22 04:15 Glucose 86 mg/dL (65-99) 04/09/22 04:15 Calcium 7.9 mg/dL (8.5-10.1) L 04/09/22 04:15 Corrected Calcium 8.9 mg/dL (8.5-10.1) 04/09/22 04:15 Total Bilirubin 0.50 mg/dL (0.2-1.0) 04/09/22 04:15 AST 16 Units/L (15-37) 04/09/22 04:15 ALT 16 Units/L (12-78) 04/09/22 04:15 Alkaline Phosphatase 68 Units/L (46-116) 04/09/22 04:15 Total Protein 5.9 g/dL (6.4-8.2) L 04/09/22 04:15 Albumin 2.8 g/dL (3.4-5.0) L 04/09/22 04:15 Globulin 3.1 g/dL (2.5-4.5) 04/09/22 04:15 Albumin/Globulin Ratio 0.9 Ratio (1.1-2.1) L 04/09/22 04:15 Amylase 19 Units/L (25-115) L 04/07/22 10:20 Lipase 51 Units/L (73-393) L 04/07/22 10:20 Specimen Type Clean catch urine 04/07/22 09:57 Urine Color Dark yellow (YELLOW) 04/07/22 09:57 Urine Appearance Hazy (CLEAR) 04/07/22 09:57 Urine pH 6.0 (5.0 - 8.0) 04/07/22 09:57 Ur Specific [place] 1.030 (1.000-1.030) 04/07/22 09:57 Urine Protein 3+ (NEGATIVE) 04/07/22 09:57 Urine Glucose (UA) Negative (NEGATIVE) 04/07/22 09:57 Urine Ketones 3+ (NEGATIVE) 04/07/22 09:57 Urine Blood 3+ (NEGATIVE) 04/07/22 09:57 Urine Nitrite Negative (NEGATIVE) 04/07/22 09:57 Urine Bilirubin 1+ (NEGATIVE) 04/07/22 09:57 Urine Urobilinogen 2+ (NORMAL) 04/07/22 09:57 Ur Leukocyte Esterase Negative (NEGATIVE) 04/07/22 09:57 Urine RBC 5-10 /HPF (0-3) A 04/07/22 09:57 Urine WBC 0-2 /HPF (0-5) 04/07/22 09:57 Ur Squamous Epith Cells Few /HPF (NEGATIVE) 04/07/22 09:57 Urine Bacteria Trace /HPF (NEGATIVE) 04/07/22 09:57 Hyaline Casts Many /LPF (NEGATIVE) 04/07/22 09:57 Urine Mucus Many /HPF (NEGATIVE) 04/07/22 09:57 Ur Culture Indicated? No/not indicated 04/07/22 09:57 SARS-CoV-2 (PCR) Negative (NEGATIVE) 04/07/22 10:57 Influenza Type A (PCR) Negative (NEGATIVE) 04/07/22 10:57 Influenza Type B (PCR) Negative (NEGATIVE) 04/07/22 10:57 RSV (PCR) Negative (NEGATIVE) 04/07/22 10:57 Tissue Pathology To follow 04/09/22 11:08 Plan (1) Colon obstruction: Status: Acute Narrative Support Text: Likely distal sigmoid colon cancer. Plan: Colon obstruction likely secondary to colon cancer at the distal sigmoid colon. Continue nasogastric tube at this time. Continue pain control and emesis control. Currently working on transfer for to a tertiary care center at the patient's request. (2) Nausea: Status: Acute Plan: IV antiemetics. (3) Generalized abdominal pain: Status: Acute Plan: Pain control.
[2022-04-09] MEDS: LASIX IVP ONE (15:54)
[2022-04-09 16:03] LABS: BILIRUBIN,URINE 1+ (NEGATIVE); BLOOD/HEMOGLOBIN,URINE 2+ (NEGATIVE); GLUCOSE, URINE NEGATIVE (NEGATIVE); KETONES,URINE 4+ (NEGATIVE); LEUKOCYTE ESTERASE ,URINE NEGATIVE (NEGATIVE); NITRITES,URINE NEGATIVE (NEGATIVE); PROTEIN,URINE 2+ (NEGATIVE); UROBILINOGEN,URINE NORMAL (NORMAL)
[2022-04-09 16:10] LABS: APPEARANCE,URINE MUCOID (CLEAR); COLOR,URINE AMBER (YELLOW)
[2022-04-09 16:15] LABS: BACTERIA,URINE TRACE /HPF (NEGATIVE); HYALINE CASTS, URINE RARE /LPF (NEGATIVE); RENAL EPITHELIAL CELLS,URINE RARE /HPF (NEGATIVE); SQUAMOUS EPITHELIAL CELL,UR RARE /HPF (NEGATIVE)
[2022-04-09] MEDS ORDERED: PROVENTIL NEB TX 0.083% 2.5MG/ 3ML ONE (16:35)
[2022-04-09] MEDS: PROVENTIL NEB TX 0.083% 2.5MG/ 3ML NEB SCH (17:06)
--- NOTE | 2022-04-10 | NOTE.SOAP ---
Soap Note Note for Day of Date of Exam: 04/09/22 Subjective Data Subjective Data: Colonoscopy done this AM and has obstructing, fungating mass at 60 cm from the anal verge. Probable colon cancer. Biopsies pending . Evidence of complete sigmoid occlusion and was scheduled for sigmoid resection in AM but the patient and family wants to be transferred to [facility] in [place]. Dr Branden BORJAS is seeking transfer to [facility] . Currently no bed yet available. Objective Data Pulse Rate: 96 Respiratory Rate: 26 Blood Pressure: 128/58 O2 Sat by Pulse Oximetry: 93 Objective Data: Distended , non -tender abdomen Assessment Assessment: Obstructing mass of sigmoid colon. Plan Plan: Patient and family seeking transfer. I spoke with her by phone and told him I would do anything I could to help , and that i am available if they change their minds .
[2022-04-10] MEDS: DILAUDID INJ IVP PRN ×8 (00:43→23:15)
[2022-04-10] MEDS: REGLAN INJ 10 MG VIAL IVP PRN ×2 (02:24→16:29)
[2022-04-10] MEDS: NS 1,000 ML IV 1,000 ML IV SCH ×3 (02:25→17:11)
[2022-04-10 05:02] LABS: BASOPHILS % (AUTO) 0.6 % (0.2-1.0); EOSINOPHILS % (AUTO) 0.6 % (0.9-2.9); HEMATOCRIT 36.9 % (36.0-47.0); HEMOGLOBIN 12.5 g/dL (12.0-16.0); LYMPHOCYTES # (AUTO) 0.9 X10^3/uL (1.3-2.9); LYMPHOCYTES % (AUTO) 15.3 % (21.0-51.0); MEAN CORPUSCULAR HEMOGLOBIN 28.4 pg (27.0-34.0); MEAN CORPUSCULAR HGB CONC 33.7 g/dL (33.0-35.0); MEAN CORPUSCULAR VOLUME 84.2 fL (80.0-100.0); MEAN PLATELET VOLUME 9.2 fL (7.4-11.0); MONOCYTES # (AUTO) 0.7 x10^3/uL (0.3-0.8); MONOCYTES % (AUTO) 11.5 % (0.0-13.0); NEUTROPHILS # (AUTO) 4.2 x10^3/uL (2.2-4.8); RED BLOOD COUNT 4.39 X10^6/uL (3.5-5.4); RED CELL DISTRIBUTION WIDTH 13.7 % (11.6-16.5); WHITE BLOOD COUNT 5.8 X10^3/uL (3.6-10.0)
[2022-04-10 05:16] LABS: ALANINE AMINOTRANSFERASE 18 Units/L (12-78); ALBUMIN 2.6 g/dL (3.4-5.0); ALKALINE PHOSPHATASE 66 Units/L (46-116); ASPARTATE AMINO TRANSFERASE 18 Units/L (15-37); BLOOD UREA NITROGEN 23 mg/dL (7-18); CARBON DIOXIDE 25.5 mmol/L (21-32); CHLORIDE 105 mmol/L (98-107); COR CA(FOR HYPOALB) 9.1 mg/dL (8.5-10.1); CREATININE 0.78 mg/dL (0.55-1.02); SODIUM 141 mmol/L (136-145); TOTAL PROTEIN 5.9 g/dL (6.4-8.2); eGFR NON BLACK RACES > 60 (>60)
[2022-04-10] MEDS ORDERED: K-DUR TAB 20 MEQ PO PRN (05:29)
[2022-04-10] MEDS ORDERED: POTASSIUM CHLORIDE LIQ 20 MEQ UDC PO PRN (05:29)
[2022-04-10] MEDS ORDERED: KLOR-CON PO PRN (05:29)
[2022-04-10] MEDS ORDERED: MICRO K EXTEN CAP 10 MEQ PO PRN (05:29)
[2022-04-10] MEDS ORDERED: K-RIDER 10 MEQ/NS 100 ML 10 MEQ/100 ML BAG IV PRN (05:29)
[2022-04-10] MEDS ORDERED: MAGNESIUM SULFATE 1 GRAM/100 mL PREMIX 1 G/100 ML BAG IV ONE (05:51)
[2022-04-10 05:54] LABS: BAND NEUTROPHILS % 31 % (0-10)
[2022-04-10 05:55] LABS: PLATELET MORPHOLOGY COMMENT NORMAL (NORMAL)
[2022-04-10] MEDS: MAGNESIUM SULFATE 1 GRAM/100 mL PREMIX 1 G/100 ML BAG IV PRN ×2 (06:01→09:26)
[2022-04-10] MEDS: ZOFRAN INJ 4 MG VIAL IVP PRN ×3 (06:03→19:01)
[2022-04-10] MEDS: PROVENTIL NEB TX 0.083% 2.5MG/ 3ML NEB SCH ×5 (06:23→17:10)
[2022-04-10] MEDS: PEPCID 20 MG VIAL 20 MG in NS 50 ML IV 50 ML IV SCH ×2 (09:23→20:12)
[2022-04-10] MEDS: LOVENOX INJ 40 MG SYR SC SCH (09:24)
--- NOTE | 2022-04-10 12:44 | PCM.DCPLAN ---
DISCHARGE SUMMARY Admission Date Date of Admission: 04/07/22 Discharge Date Discharge Date: 04/10/22 Admission Diagnoses (1) Colon obstruction: Status: Acute (2) Nausea: Status: Acute (3) Generalized abdominal pain: Status: Acute Discharge Diagnoses Discharge Diagnosis: 1. Obstructing sigmoid colon mass likely colon cancer 2. Nausea 3. Generalized abdominal pain 4. History of hyperlipidemia 5. History of osteoarthritis Discharge Medications Discharge Medications: Home Medication List atorvastatin 20 mg tablet 1 tab PO QDAY 04/07/22 [History] ergocalciferol (vitamin D2) 1,250 mcg (50,000 unit) capsule 1 cap PO QWEEK 04/07/22 [History] ondansetron 8 mg disintegrating tablet 1 tab PO TID 04/07/22 [History] Prescriptions: Hospital Course Vital Signs: Temperature 98.3 F Pulse Rate [Left Brachial] 85 Pulse Rate 97 Respiratory Rate 28 Blood Pressure [Right Arm] 116/65 Blood Pressure [Left Arm] 161/70 Blood Pressure 132/61 O2 Sat by Pulse Oximetry 92 Latest Lab Results: Laboratory Last Values WBC 5.8 X10^3/uL (3.6-10.0) 04/10/22 04:30 RBC 4.39 X10^6/uL (3.5-5.4) 04/10/22 04:30 Hgb 12.5 g/dL (12.0-16.0) 04/10/22 04:30 Hct 36.9 % (36.0-47.0) 04/10/22 04:30 MCV 84.2 fL (80.0-100.0) 04/10/22 04:30 MCH 28.4 pg (27.0-34.0) 04/10/22 04:30 MCHC 33.7 g/dL (33.0-35.0) 04/10/22 04:30 RDW 13.7 % (11.6-16.5) 04/10/22 04:30 Plt Count 265 X10^3/uL (150.0-450.0) 04/10/22 04:30 Plt Count Comment Adequate (ADEQUATE) 04/10/22 04:30 MPV 9.2 fL (7.4-11.0) 04/10/22 04:30 Neut % (Auto) 72.0 % (42.0-75.0) 04/10/22 04:30 Lymph % (Auto) 15.3 % (21.0-51.0) L 04/10/22 04:30 [place] % (Auto) 11.5 % (0.0-13.0) 04/10/22 04:30 Eos % (Auto) 0.6 % (0.9-2.9) L 04/10/22 04:30 Baso % (Auto) 0.6 % (0.2-1.0) 04/10/22 04:30 Neut # (Auto) 4.2 x10^3/uL (2.2-4.8) 04/10/22 04:30 Lymph # (Auto) 0.9 X10^3/uL (1.3-2.9) L 04/10/22 04:30 [place] # (Auto) 0.7 x10^3/uL (0.3-0.8) 04/10/22 04:30 Eos # (Auto) 0.0 x10^3/uL (0.0-0.2) 04/10/22 04:30 Baso # (Auto) 0.0 X10^3/uL (0.0-0.1) 04/10/22 04:30 Absolute Nucleated RBC 0.1 /100WBC 04/10/22 04:30 Total Counted 100 04/10/22 04:30 Neutrophils % (Manual) 39 % (39-76) 04/10/22 04:30 Band Neutrophils % 31 % (0-10) H 04/10/22 04:30 Lymphocytes % (Manual) 18 % (13-43) 04/10/22 04:30 Monocytes % (Manual) 12 % (4-9) H 04/10/22 04:30 Plt Morphology Comment Normal (NORMAL) 04/10/22 04:30 RBC Morphology Normal (NORMAL) 04/10/22 04:30 Sodium 141 mmol/L (136-145) 04/10/22 04:30 Corrected Sodium TNP 04/10/22 04:30 Potassium 3.6 mmol/L (3.5-5.1) 04/10/22 04:30 Chloride 105 mmol/L (98-107) 04/10/22 04:30 Carbon Dioxide 25.5 mmol/L (21-32) 04/10/22 04:30 BUN 23 mg/dL (7-18) H 04/10/22 04:30 Creatinine 0.78 mg/dL (0.55-1.02) 04/10/22 04:30 Est GFR (MDRD) Af Amer > 60 (>60) 04/10/22 04:30 Est GFR (MDRD) Non-Af > 60 (>60) 04/10/22 04:30 Glucose 63 mg/dL (65-99) L 04/10/22 04:30 Calcium 8.0 mg/dL (8.5-10.1) L 04/10/22 04:30 Corrected Calcium 9.1 mg/dL (8.5-10.1) 04/10/22 04:30 Magnesium 1.9 mg/dL (2.0-2.9) L 04/10/22 04:30 Total Bilirubin 0.50 mg/dL (0.2-1.0) 04/10/22 04:30 AST 18 Units/L (15-37) 04/10/22 04:30 ALT 18 Units/L (12-78) 04/10/22 04:30 Alkaline Phosphatase 66 Units/L (46-116) 04/10/22 04:30 Total Protein 5.9 g/dL (6.4-8.2) L 04/10/22 04:30 Albumin 2.6 g/dL (3.4-5.0) L 04/10/22 04:30 Globulin 3.3 g/dL (2.5-4.5) 04/10/22 04:30 Albumin/Globulin Ratio 0.8 Ratio (1.1-2.1) L 04/10/22 04:30 Amylase 19 Units/L (25-115) L 04/07/22 10:20 Lipase 51 Units/L (73-393) L 04/07/22 10:20 Specimen Type Catherized urine 04/09/22 15:42 Urine Color [place] (YELLOW) 04/09/22 15:42 Urine Appearance Mucoid (CLEAR) 04/09/22 15:42 Urine pH 6.0 (5.0 - 8.0) 04/09/22 15:42 Ur Specific [place] 1.030 (1.000-1.030) 04/09/22 15:42 Urine Protein 2+ (NEGATIVE) 04/09/22 15:42 Urine Glucose (UA) Negative (NEGATIVE) 04/09/22 15:42 Urine Ketones 4+ (NEGATIVE) 04/09/22 15:42 Urine Blood 2+ (NEGATIVE) 04/09/22 15:42 Urine Nitrite Negative (NEGATIVE) 04/09/22 15:42 Urine Bilirubin 1+ (NEGATIVE) 04/09/22 15:42 Urine Urobilinogen Normal (NORMAL) 04/09/22 15:42 Ur Leukocyte Esterase Negative (NEGATIVE) 04/09/22 15:42 Urine RBC 3-5 /HPF (0-3) A 04/09/22 15:42 Urine WBC None seen /HPF (0-5) 04/09/22 15:42 Ur Squamous Epith Cells Rare /HPF (NEGATIVE) 04/09/22 15:42 Ur Renal Epithelial Cell Rare /HPF (NEGATIVE) 04/09/22 15:42 Urine Bacteria Trace /HPF (NEGATIVE) 04/09/22 15:42 Hyaline Casts Rare /LPF (NEGATIVE) 04/09/22 15:42 Urine Mucus Many /HPF (NEGATIVE) 04/09/22 15:42 Ur Culture Indicated? No/not indicated 04/09/22 15:42 SARS-CoV-2 (PCR) Negative (NEGATIVE) 04/07/22 10:57 Influenza Type A (PCR) Negative (NEGATIVE) 04/07/22 10:57 Influenza Type B (PCR) Negative (NEGATIVE) 04/07/22 10:57 RSV (PCR) Negative (NEGATIVE) 04/07/22 10:57 Tissue Pathology To follow 04/09/22 11:08 Hospital Course: Pt is a 66 year old female presenting with abdominal pain, distention, and decreased bowel movements for the past 2-3 days. Labs/imaging: Wbc 11.7, Hgb 14.2, Plt 311, Na 134, K 3.6, Creatinine 0.85, Glucose 84, CEA pending, UA negative, COVID-19 negative, CTAP was obtained that revealed: Soft tissue density within the sigmoid colon is observed with proximal colonic distension and associated small-bowel air-filled loops are noted. Continued evaluation with direct visualization or correlation with recent colonoscopy is requested. Pt was admitted for colon obstruction. General surgery consulted. Pt has NG tube placed and will be kept NPO. She did have enema yesterday that she felt helped a little and will order another one today. Surgery plan for possible colonoscopy. Continue with current treatment plan. Closely monitor and follow up labs and imaging in the morning. Over the next 2 days patient was treated for pain and nausea successfully. Yesterday she had a flexible sigmoidoscopy that showed a sigmoid colon mass likely colon cancer. It was obstructing. After the patient awakened from anesthesia from the sigmoidoscopy the results were explained to her and her family. They initially were planning on having surgery here the following day but changed her mind and requested to be transferred to a tertiary care center for the surgery and continue care. We were not able to get her transferred yesterday to [facility] in [place], [place] as it did not have any beds. Fortunately today [facility] in [place], [place] has accepted the patient as they have a bed for the patient and we will be transferring her down there later today in stable condition. I will follow-up with her upon her return.
--- NOTE | 2022-04-10 14:48 | PCM.PROG ---
Progress Note Progress Note for Day of Date of Exam: 04/10/22 Subjective Subjective: We were unable to transfer the patient yesterday as they did not have a bed available at [facility] in [place], [place]. The family is still wanting her to be transferred so we will try some of the hospitals today in [place], [place]. In the meantime she is doing okay he says that her pain is controlled and her nausea is improved. She has no other complaints this morning. Labs reviewed and within normal limits today. Patient's abdomen remains distended. Past Medical Family Social History Allergies: Allergies No Known Drug Allergies Allergy (Verified 11/09/18 13:42) Vital Signs and I&O's Vital Signs: Temperature 98.3 F Pulse Rate [Left Brachial] 85 Pulse Rate 97 Respiratory Rate 22 Blood Pressure [Right Arm] 116/65 Blood Pressure [Left Arm] 161/70 Blood Pressure 132/61 O2 Sat by Pulse Oximetry 92 Intake and Output: Intake & Output 04/08/22 04/09/22 04/10/22 04/11/22 11:59 11:59 11:59 11:59 Intake Total 1950 / 1950 1742 / 1742 2085 / 2085 0 / 0 Output Total 75 / 75 110 / 110 1200 / 1400 200 / 200 Balance 1876 / 1876 1632 / 1632 886 / 686 -200 / -200 Physical Exam Oriented: Normal, Time, Person and Place Eyes: Normal Ear: Normal Nose: Normal Throat: Normal Respiratory: Normal Cardiovascular: Normal : Normal Auscultation: Bowel Sounds: Decreased Palpation: Other (Diffuse generalized abdominal distention with diffuse tympany) Tenderness: Diffuse and Moderate Skin: Normal Musculoskeletal: Normal Psychiatric: Normal Mood Description: Calm Affect: Normal Speech Pattern: Clear and Appropriate Laboratory and Diagnostics Result Diagrams: 04/10/22 04:30 04/10/22 04:30 Labs: Laboratory WBC 5.8 X10^3/uL (3.6-10.0) 04/10/22 04:30 RBC 4.39 X10^6/uL (3.5-5.4) 04/10/22 04:30 Hgb 12.5 g/dL (12.0-16.0) 04/10/22 04:30 Hct 36.9 % (36.0-47.0) 04/10/22 04:30 MCV 84.2 fL (80.0-100.0) 04/10/22 04:30 MCH 28.4 pg (27.0-34.0) 04/10/22 04:30 MCHC 33.7 g/dL (33.0-35.0) 04/10/22 04:30 RDW 13.7 % (11.6-16.5) 04/10/22 04:30 Plt Count 265 X10^3/uL (150.0-450.0) 04/10/22 04:30 Plt Count Comment Adequate (ADEQUATE) 04/10/22 04:30 MPV 9.2 fL (7.4-11.0) 04/10/22 04:30 Neut % (Auto) 72.0 % (42.0-75.0) 04/10/22 04:30 Lymph % (Auto) 15.3 % (21.0-51.0) L 04/10/22 04:30 [place] % (Auto) 11.5 % (0.0-13.0) 04/10/22 04:30 Eos % (Auto) 0.6 % (0.9-2.9) L 04/10/22 04:30 Baso % (Auto) 0.6 % (0.2-1.0) 04/10/22 04:30 Neut # (Auto) 4.2 x10^3/uL (2.2-4.8) 04/10/22 04:30 Lymph # (Auto) 0.9 X10^3/uL (1.3-2.9) L 04/10/22 04:30 [place] # (Auto) 0.7 x10^3/uL (0.3-0.8) 04/10/22 04:30 Eos # (Auto) 0.0 x10^3/uL (0.0-0.2) 04/10/22 04:30 Baso # (Auto) 0.0 X10^3/uL (0.0-0.1) 04/10/22 04:30 Absolute Nucleated RBC 0.1 /100WBC 04/10/22 04:30 Total Counted 100 04/10/22 04:30 Neutrophils % (Manual) 39 % (39-76) 04/10/22 04:30 Band Neutrophils % 31 % (0-10) H 04/10/22 04:30 Lymphocytes % (Manual) 18 % (13-43) 04/10/22 04:30 Monocytes % (Manual) 12 % (4-9) H 04/10/22 04:30 Plt Morphology Comment Normal (NORMAL) 04/10/22 04:30 RBC Morphology Normal (NORMAL) 04/10/22 04:30 Sodium 141 mmol/L (136-145) 04/10/22 04:30 Corrected Sodium TNP 04/10/22 04:30 Potassium 3.6 mmol/L (3.5-5.1) 04/10/22 04:30 Chloride 105 mmol/L (98-107) 04/10/22 04:30 Carbon Dioxide 25.5 mmol/L (21-32) 04/10/22 04:30 BUN 23 mg/dL (7-18) H 04/10/22 04:30 Creatinine 0.78 mg/dL (0.55-1.02) 04/10/22 04:30 Est GFR (MDRD) Af Amer > 60 (>60) 04/10/22 04:30 Est GFR (MDRD) Non-Af > 60 (>60) 04/10/22 04:30 Glucose 63 mg/dL (65-99) L 04/10/22 04:30 Calcium 8.0 mg/dL (8.5-10.1) L 04/10/22 04:30 Corrected Calcium 9.1 mg/dL (8.5-10.1) 04/10/22 04:30 Magnesium 1.9 mg/dL (2.0-2.9) L 04/10/22 04:30 Total Bilirubin 0.50 mg/dL (0.2-1.0) 04/10/22 04:30 AST 18 Units/L (15-37) 04/10/22 04:30 ALT 18 Units/L (12-78) 04/10/22 04:30 Alkaline Phosphatase 66 Units/L (46-116) 04/10/22 04:30 Total Protein 5.9 g/dL (6.4-8.2) L 04/10/22 04:30 Albumin 2.6 g/dL (3.4-5.0) L 04/10/22 04:30 Globulin 3.3 g/dL (2.5-4.5) 04/10/22 04:30 Albumin/Globulin Ratio 0.8 Ratio (1.1-2.1) L 04/10/22 04:30 Amylase 19 Units/L (25-115) L 04/07/22 10:20 Lipase 51 Units/L (73-393) L 04/07/22 10:20 Specimen Type Catherized urine 04/09/22 15:42 Urine Color [place]ille (YELLOW) 04/09/22 15:42 Urine Appearance Mucoid (CLEAR) 04/09/22 15:42 Urine pH 6.0 (5.0 - 8.0) 04/09/22 15:42 Ur Specific [place] 1.030 (1.000-1.030) 04/09/22 15:42 Urine Protein 2+ (NEGATIVE) 04/09/22 15:42 Urine Glucose (UA) Negative (NEGATIVE) 04/09/22 15:42 Urine Ketones 4+ (NEGATIVE) 04/09/22 15:42 Urine Blood 2+ (NEGATIVE) 04/09/22 15:42 Urine Nitrite Negative (NEGATIVE) 04/09/22 15:42 Urine Bilirubin 1+ (NEGATIVE) 04/09/22 15:42 Urine Urobilinogen Normal (NORMAL) 04/09/22 15:42 Ur Leukocyte Esterase Negative (NEGATIVE) 04/09/22 15:42 Urine RBC 3-5 /HPF (0-3) A 04/09/22 15:42 Urine WBC None seen /HPF (0-5) 04/09/22 15:42 Ur Squamous Epith Cells Rare /HPF (NEGATIVE) 04/09/22 15:42 Ur Renal Epithelial Cell Rare /HPF (NEGATIVE) 04/09/22 15:42 Urine Bacteria Trace /HPF (NEGATIVE) 04/09/22 15:42 Hyaline Casts Rare /LPF (NEGATIVE) 04/09/22 15:42 Urine Mucus Many /HPF (NEGATIVE) 04/09/22 15:42 Ur Culture Indicated? No/not indicated 04/09/22 15:42 SARS-CoV-2 (PCR) Negative (NEGATIVE) 04/07/22 10:57 Influenza Type A (PCR) Negative (NEGATIVE) 04/07/22 10:57 Influenza Type B (PCR) Negative (NEGATIVE) 04/07/22 10:57 RSV (PCR) Negative (NEGATIVE) 04/07/22 10:57 Tissue Pathology To follow 04/09/22 11:08 Plan (1) Colon obstruction: Status: Acute Plan: Colon obstruction likely secondary to colon cancer at the distal sigmoid colon. Continue nasogastric tube at this time. Continue pain control and emesis control. Currently working on transfer for to a tertiary care center at the patient's request. (2) Nausea: Status: Acute Plan: IV antiemetics. (3) Generalized abdominal pain: Status: Acute Plan: Pain control.
[2022-04-10] MEDS: PROTONIX INJ 40 MG VIAL IVP SCH (20:12)
[2022-04-10] MEDS: ZOSYN VIAL 3.375 GRAMS 3.375 G in NS 100 ML IV 100 ML IV SCH (20:49)
[2022-04-11] MEDS: PROVENTIL NEB TX 0.083% 2.5MG/ 3ML NEB SCH ×4 (00:05→17:10)
[2022-04-11] MEDS: ZOFRAN INJ 4 MG VIAL IVP PRN ×3 (02:10→16:24)
[2022-04-11] MEDS: DILAUDID INJ IVP PRN ×4 (02:11→15:52)
[2022-04-11] MEDS: NS 1,000 ML IV 1,000 ML IV SCH ×2 (02:20→14:39)
[2022-04-11 05:00] LABS: BASOPHILS # (AUTO) 0.1 X10^3/uL (0.0-0.1); BASOPHILS % (AUTO) 0.7 % (0.2-1.0); EOSINOPHILS % (AUTO) 0.4 % (0.9-2.9); HEMATOCRIT 38.5 % (36.0-47.0); HEMOGLOBIN 13.2 g/dL (12.0-16.0); LYMPHOCYTES # (AUTO) 0.7 X10^3/uL (1.3-2.9); LYMPHOCYTES % (AUTO) 9.4 % (21.0-51.0); MEAN CORPUSCULAR HEMOGLOBIN 28.5 pg (27.0-34.0); MEAN CORPUSCULAR HGB CONC 34.3 g/dL (33.0-35.0); MEAN CORPUSCULAR VOLUME 83.2 fL (80.0-100.0); MEAN PLATELET VOLUME 9.5 fL (7.4-11.0); MONOCYTES # (AUTO) 0.8 x10^3/uL (0.3-0.8); MONOCYTES % (AUTO) 10.7 % (0.0-13.0); NEUTROPHILS # (AUTO) 6.1 x10^3/uL (2.2-4.8); NEUTROPHILS % (AUTO) 78.8 % (42.0-75.0); RED BLOOD COUNT 4.63 X10^6/uL (3.5-5.4); RED CELL DISTRIBUTION WIDTH 13.7 % (11.6-16.5); WHITE BLOOD COUNT 7.7 X10^3/uL (3.6-10.0)
[2022-04-11] MEDS: ZOSYN VIAL 3.375 GRAMS 3.375 G in NS 100 ML IV 100 ML IV SCH ×2 (05:04→14:23)
[2022-04-11 05:22] LABS: ALANINE AMINOTRANSFERASE 18 Units/L (12-78); ALBUMIN 2.6 g/dL (3.4-5.0); ALKALINE PHOSPHATASE 65 Units/L (46-116); ASPARTATE AMINO TRANSFERASE 24 Units/L (15-37); BLOOD UREA NITROGEN 24 mg/dL (7-18); CALCIUM 8.2 mg/dL (8.5-10.1); CARBON DIOXIDE 25.1 mmol/L (21-32); CHLORIDE 105 mmol/L (98-107); COR CA(FOR HYPOALB) 9.3 mg/dL (8.5-10.1); CREATININE 0.78 mg/dL (0.55-1.02); MAGNESIUM 2.2 mg/dL (2.0-2.9); SODIUM 143 mmol/L (136-145); TOTAL PROTEIN 6.2 g/dL (6.4-8.2); eGFR NON BLACK RACES > 60 (>60)
[2022-04-11 05:52] LABS: BAND NEUTROPHILS % 26 % (0-10)
[2022-04-11 05:53] LABS: GIANT PLATELET RARE; PLATELET MORPHOLOGY COMMENT ABNORMAL (NORMAL); ROULEAUX SLIGHT
[2022-04-11] MEDS ORDERED: KETAMINE 50 MG/5 ML-NACL SYRNG ONE (07:09)
--- NOTE | 2022-04-11 07:58 | EKG ---
Test Reason : Atrial Fib on monitor Blood Pressure : */* mmHG Vent. Rate : 140 BPM Atrial Rate : * BPM P-R Int : * ms QRS Dur : 84 ms QT Int : 262 ms P-R-T Axes : * 47 -22 degrees QTc Int : 399 ms Atrial fibrillation with rapid ventricular response with premature ventricular or aberrantly conducte d complexes Nonspecific ST abnormality Abnormal QRS-T angle, consider primary T wave abnormality Abnormal ECG No previous ECGs available Confirmed by Quirino Salcedo ([id number]) on 04/14/2022 3:15:56 PM Referred By: Confirmed By: Quirino Salcedo
[2022-04-11] MEDS ORDERED: CARDIZEM INJ 50 MG VIAL IVP ONE (08:15)
[2022-04-11] MEDS ORDERED: ZEMURON 100 MG VIAL ONE (08:18)
[2022-04-11] MEDS ORDERED: PRECEDEX INJ VIAL IVP ONE (08:19)
[2022-04-11] MEDS ORDERED: ZOFRAN INJ 4 MG VIAL ONE (08:19)
[2022-04-11] MEDS ORDERED: PEPCID 20 MG VIAL ONE (08:19)
[2022-04-11] MEDS ORDERED: XYLOCAINE 2 % (PLAIN) ONE (08:19)
[2022-04-11] MEDS ORDERED: AMIDATE INJ 40 MG VIAL ONE (08:19)
[2022-04-11] MEDS ORDERED: BRIDION ONE (08:19)
[2022-04-11] MEDS ORDERED: ROBINUL ONE (08:19)
[2022-04-11] MEDS ORDERED: FENTANYL VIAL INJ 100 mcg ONE (08:21)
[2022-04-11] MEDS ORDERED: VERSED ONE (08:21)
[2022-04-11] MEDS ORDERED: ATIVAN INJ 2 MG VIAL IVP ONE (09:04)
--- NOTE | 2022-04-11 09:45 | RAD ---
HISTORYPreop SBOSTUDYPortable AP chestCOMPARISONJanuary 2022FINDINGSHeart size normal. Developing right basal atelectasis partly obscuring the normally well-defined right diaphragm. There is no evidence for pleural fluid, upper lobe involvement or vascular congestion.IMPRESSIONInterval appearance of mild right basal atelectasis.Electronically signed by: LEONOR RAMIREZ (Apr 11, 2022 09:44:24)
[2022-04-11] MEDS: PEPCID 20 MG VIAL 20 MG in NS 50 ML IV 50 ML IV SCH (09:53)
[2022-04-11] MEDS: PROTONIX INJ 40 MG VIAL IVP SCH (09:53)
[2022-04-11] MEDS: LOVENOX INJ 40 MG SYR SC SCH (09:54)
[2022-04-11] MEDS ORDERED: CARDIZEM INJ 125 MG VIAL 125 MG in NS 100 ML IV 100 ML IV PRN (13:11)
--- NOTE | 2022-04-11 15:14 | RAD ---
EXAM: ABDOMEN X-RAY (or KUB)HISTORY: Nasogastric tube verification status post placement.TECHNIQUE: Supine viewCOMPARISON: None.FINDINGS:Nasogastric tube is noted with the distal tip within the proximal body of the stomach and the proximal sidehole within the distal esophagus. Recommend further advancement into the stomach (assuming normal gastric anatomy).The bowel gas pattern is nonspecific and nonobstructive. There is no gross organomegaly, free intraperitoneal air, or suspicious calcifications seen. The visualized bony structures are within normal limits.IMPRESSION:1. Nasogastric tube is noted with the distal tip within the proximal body of the stomach and the proximal sidehole within the distal esophagus. Recommend further advancement into the stomach (assuming normal gastric anatomy).Electronically signed by: Juan Medrano (Apr 11, 2022 15:12:47)
--- NOTE | 2022-04-11 15:40 | PCM.PROG ---
Progress Note Progress Note for Day of Date of Exam: 04/11/22 Subjective Subjective: We were not able to get the patient transferred is all the hospitals around were full. Patient wanted to change surgeons to Dr. Cabral and have him perform the colostomy. We consulted him and he saw the patient yesterday. He plans on doing a colostomy procedure later today. Unfortunately the patient has had some runs of atrial fibrillation this morning with RVR. Heart rate is got up to the 150s at times with currently is in the 1 teens. I will start her on on IV Cardizem and give her a 10 mg bolus IV x1 this morning. Also check cardiac enzymes to make sure they are okay prior to her colostomy. She does continue to have some discomfort and abdominal distention from the sigmoid mass. Past Medical Family Social History Allergies: Allergies No Known Drug Allergies Allergy (Verified 11/09/18 13:42) Review of Systems ROS: Changes notes (describe) (Tachycardia) Vital Signs and I&O's Vital Signs: Temperature 98.9 F Pulse Rate [Left Brachial] 85 Pulse Rate 99 Respiratory Rate 23 Blood Pressure [Right Arm] 116/65 Blood Pressure [Left Arm] 161/70 Blood Pressure 125/59 O2 Sat by Pulse Oximetry 90 Intake and Output: Intake & Output 04/09/22 04/10/22 04/11/22 04/12/22 11:59 11:59 11:59 11:59 Intake Total 1742 / 1742 2086 / 2086 2405 / 2405 Output Total 110 / 110 1200 / 1400 1850 / 1850 Balance 1632 / 1632 886 / 686 555 / 555 Physical Exam Oriented: Normal, Time, Person and Place Eyes: Normal Ear: Normal Nose: Normal Throat: Normal Respiratory: Normal Cardiovascular: Normal : Normal Auscultation: Bowel Sounds: Decreased Tenderness: Diffuse and Moderate Skin: Normal Musculoskeletal: Normal Psychiatric: Normal Mood Description: Calm Affect: Normal Speech Pattern: Clear and Appropriate Laboratory and Diagnostics Result Diagrams: 04/11/22 04:20 04/11/22 04:20 Labs: Laboratory WBC 7.7 X10^3/uL (3.6-10.0) 04/11/22 04:20 RBC 4.63 X10^6/uL (3.5-5.4) 04/11/22 04:20 Hgb 13.2 g/dL (12.0-16.0) 04/11/22 04:20 Hct 38.5 % (36.0-47.0) 04/11/22 04:20 MCV 83.2 fL (80.0-100.0) 04/11/22 04:20 MCH 28.5 pg (27.0-34.0) 04/11/22 04:20 MCHC 34.3 g/dL (33.0-35.0) 04/11/22 04:20 RDW 13.7 % (11.6-16.5) 04/11/22 04:20 Plt Count 292 X10^3/uL (150.0-450.0) 04/11/22 04:20 Plt Count Comment Adequate (ADEQUATE) 04/11/22 04:20 MPV 9.5 fL (7.4-11.0) 04/11/22 04:20 Neut % (Auto) 78.8 % (42.0-75.0) H 04/11/22 04:20 Lymph % (Auto) 9.4 % (21.0-51.0) L 04/11/22 04:20 [place] % (Auto) 10.7 % (0.0-13.0) 04/11/22 04:20 Eos % (Auto) 0.4 % (0.9-2.9) L 04/11/22 04:20 Baso % (Auto) 0.7 % (0.2-1.0) 04/11/22 04:20 Neut # (Auto) 6.1 x10^3/uL (2.2-4.8) H 04/11/22 04:20 Lymph # (Auto) 0.7 X10^3/uL (1.3-2.9) L 04/11/22 04:20 [place]t # (Auto) 0.8 x10^3/uL (0.3-0.8) 04/11/22 04:20 Eos # (Auto) 0.0 x10^3/uL (0.0-0.2) 04/11/22 04:20 Baso # (Auto) 0.1 X10^3/uL (0.0-0.1) 04/11/22 04:20 Absolute Nucleated RBC 0.0 /100WBC 04/11/22 04:20 Total Counted 100 04/11/22 04:20 Neutrophils % (Manual) 54 % (39-76) 04/11/22 04:20 Band Neutrophils % 26 % (0-10) H 04/11/22 04:20 Lymphocytes % (Manual) 9 % (13-43) L 04/11/22 04:20 Monocytes % (Manual) 11 % (4-9) H 04/11/22 04:20 Giant Platelets Rare 04/11/22 04:20 Plt Morphology Comment Abnormal (NORMAL) A 04/11/22 04:20 RBC Morphology Abnormal (NORMAL) A 04/11/22 04:20 Rouleaux Slight A 04/11/22 04:20 Sodium 143 mmol/L (136-145) 04/11/22 04:20 Corrected Sodium TNP 04/11/22 04:20 Potassium 3.8 mmol/L (3.5-5.1) 04/11/22 04:20 Chloride 105 mmol/L (98-107) 04/11/22 04:20 Carbon Dioxide 25.1 mmol/L (21-32) 04/11/22 04:20 BUN 24 mg/dL (7-18) H 04/11/22 04:20 Creatinine 0.78 mg/dL (0.55-1.02) 04/11/22 04:20 Est GFR (MDRD) Af Amer > 60 (>60) 04/11/22 04:20 Est GFR (MDRD) Non-Af > 60 (>60) 04/11/22 04:20 Glucose 84 mg/dL (65-99) 04/11/22 04:20 Calcium 8.2 mg/dL (8.5-10.1) L 04/11/22 04:20 Corrected Calcium 9.3 mg/dL (8.5-10.1) 04/11/22 04:20 Magnesium 2.2 mg/dL (2.0-2.9) 04/11/22 04:20 Total Bilirubin 0.50 mg/dL (0.2-1.0) 04/11/22 04:20 AST 24 Units/L (15-37) 04/11/22 04:20 ALT 18 Units/L (12-78) 04/11/22 04:20 Alkaline Phosphatase 65 Units/L (46-116) 04/11/22 04:20 Troponin I High Sens 16.9 ng/L (4.0-60.0) 04/11/22 10:27 Total Protein 6.2 g/dL (6.4-8.2) L 04/11/22 04:20 Albumin 2.6 g/dL (3.4-5.0) L 04/11/22 04:20 Globulin 3.6 g/dL (2.5-4.5) 04/11/22 04:20 Albumin/Globulin Ratio 0.7 Ratio (1.1-2.1) L 04/11/22 04:20 Amylase 19 Units/L (25-115) L 04/07/22 10:20 Lipase 51 Units/L (73-393) L 04/07/22 10:20 Carcinoembryonic Ag 3.5 ng/mL (<=3.8) 04/07/22 10:20 Specimen Type Catherized urine 04/09/22 15:42 Urine Color Camille (YELLOW) 04/09/22 15:42 Urine Appearance Mucoid (CLEAR) 04/09/22 15:42 Urine pH 6.0 (5.0 - 8.0) 04/09/22 15:42 Ur Specific [place] 1.030 (1.000-1.030) 04/09/22 15:42 Urine Protein 2+ (NEGATIVE) 04/09/22 15:42 Urine Glucose (UA) Negative (NEGATIVE) 04/09/22 15:42 Urine Ketones 4+ (NEGATIVE) 04/09/22 15:42 Urine Blood 2+ (NEGATIVE) 04/09/22 15:42 Urine Nitrite Negative (NEGATIVE) 04/09/22 15:42 Urine Bilirubin 1+ (NEGATIVE) 04/09/22 15:42 Urine Urobilinogen Normal (NORMAL) 04/09/22 15:42 Ur Leukocyte Esterase Negative (NEGATIVE) 04/09/22 15:42 Urine RBC 3-5 /HPF (0-3) A 04/09/22 15:42 Urine WBC None seen /HPF (0-5) 04/09/22 15:42 Ur Squamous Epith Cells Rare /HPF (NEGATIVE) 04/09/22 15:42 Ur Renal Epithelial Cell Rare /HPF (NEGATIVE) 04/09/22 15:42 Urine Bacteria Trace /HPF (NEGATIVE) 04/09/22 15:42 Hyaline Casts Rare /LPF (NEGATIVE) 04/09/22 15:42 Urine Mucus Many /HPF (NEGATIVE) 04/09/22 15:42 Ur Culture Indicated? No/not indicated 04/09/22 15:42 SARS-CoV-2 (PCR) Negative (NEGATIVE) 04/07/22 10:57 Influenza Type A (PCR) Negative (NEGATIVE) 04/07/22 10:57 Influenza Type B (PCR) Negative (NEGATIVE) 04/07/22 10:57 RSV (PCR) Negative (NEGATIVE) 04/07/22 10:57 Tissue Pathology To follow 04/09/22 11:08 Plan (1) Colon obstruction: Status: Acute Plan: Colon obstruction likely secondary to colon cancer at the distal sigmoid colon. Continue nasogastric tube at this time. Continue pain control and emesis control. Currently working on transfer for to a tertiary care center at the patient's request. (2) Nausea: Status: Acute Plan: IV antiemetics. (3) Generalized abdominal pain: Status: Acute Plan: Pain control. (4) Atrial fibrillation with RVR: Status: Acute Plan: Cardizem 10 mg IV bolus x1. We will start Cardizem drip after her procedure for the colostomy. Also check cardiac enzymes today.
--- NOTE | 2022-04-11 16:16 | RAD ---
HISTORYADVANCEMENT OF NG TUBE, CONFIRM PLACEMENTSTUDYKUBCOMPARISONNone .br.br location it is most likely in the stomach.There is diffuse dilatation of the colon and possibly the small-bowel. This might represent a paralytic ileus.EKG leads are noted. Probable linear atelectasis in the lung basis. Degenerative changes are present in the spine.IMPRESSION1. Enteric tube in the stomachElectronically signed by: Kevin García (Apr 11, 2022 16:15:24)
[2022-04-11 22:42] VITALS: BP 110/74
--- NOTE | 2022-04-12 08:43 | DR.OPNOTE ---
OP NOTE Pre-Op Diagnosis: Obstruction of sigmoid colon Post-Op Diagnosis: Obstructing mass of sigmoid coln at 60 cm, likely colon cancer Procedure Date Date Of Procedure: 04/09/22 Procedure: PROCEDURE: FLEXIBLE SIGMOIDOCOPY NARRATIVE: The patient had several enemas prior to the procedure. I could not prep from above due to the obstruction. She was taken to the endoscopy suite and placed in the left lateral position. She was given intravenous sedation and time out for the procedure obtained . Sedation was supervised by myself. The flexible endoscope introduced into the anus and taking up two 60 cm without difficulty and we encountered a mass which was completely obstructing the sigmoid colon. I could not get the scope beyond the mass. Multiple biopsies obtained. The patient had the area tattooed above and below the area of obstruction using methylene blue. Scope withdrawn and the patient tolerated this well. Anesthesia Comment: MAC Findings: Completely obstructing mass of the sigmoid colon at 60 cm from anal verge,likely colon cancer, biopsies pending Specimen/Pathology: biopsies x 4 of sigmoid colon mass Type of Fluids Used:: Lactated Ringers EBL: none Complications:: none Needle/Sponge Count:: correct Disposition/Condition: Pt. tolerated procedure without difficulty. Taken back to floor in stable condition.
--- NOTE | 2022-04-15 15:40 | PCM.DCPLAN ---
DISCHARGE SUMMARY Admission Date Date of Admission: 04/07/22 Discharge Date Discharge Date: 04/11/22 Admission Diagnoses (1) Colon obstruction: Status: Acute (2) Nausea: Status: Acute (3) Generalized abdominal pain: Status: Acute (4) Atrial fibrillation with RVR: Status: Acute Discharge Diagnoses Discharge Diagnosis: 1. Colon obstruction 2. Atrial fibrillation with RVR 3. Chronic nausea 4. Generalized abdominal pain 5. Hyperlipidemia Discharge Medications Discharge Medications: Home Medication List atorvastatin 20 mg tablet 1 tab PO QDAY 04/07/22 [History] ergocalciferol (vitamin D2) 1,250 mcg (50,000 unit) capsule 1 cap PO QWEEK 04/07/22 [History] ondansetron 8 mg disintegrating tablet 1 tab PO TID 04/07/22 [History] Prescriptions: Hospital Course Vital Signs: Temperature 98.4 F Pulse Rate [Left Brachial] 85 Pulse Rate 85 Respiratory Rate 22 Blood Pressure [Right Arm] 116/65 Blood Pressure [Left Arm] 161/70 Blood Pressure 110/74 O2 Sat by Pulse Oximetry 93 Latest Lab Results: Laboratory Last Values WBC 7.7 X10^3/uL (3.6-10.0) 04/11/22 04:20 RBC 4.63 X10^6/uL (3.5-5.4) 04/11/22 04:20 Hgb 13.2 g/dL (12.0-16.0) 04/11/22 04:20 Hct 38.5 % (36.0-47.0) 04/11/22 04:20 MCV 83.2 fL (80.0-100.0) 04/11/22 04:20 MCH 28.5 pg (27.0-34.0) 04/11/22 04:20 MCHC 34.3 g/dL (33.0-35.0) 04/11/22 04:20 RDW 13.7 % (11.6-16.5) 04/11/22 04:20 Plt Count 292 X10^3/uL (150.0-450.0) 04/11/22 04:20 Plt Count Comment Adequate (ADEQUATE) 04/11/22 04:20 MPV 9.5 fL (7.4-11.0) 04/11/22 04:20 Neut % (Auto) 78.8 % (42.0-75.0) H 04/11/22 04:20 Lymph % (Auto) 9.4 % (21.0-51.0) L 04/11/22 04:20 [place] % (Auto) 10.7 % (0.0-13.0) 04/11/22 04:20 Eos % (Auto) 0.4 % (0.9-2.9) L 04/11/22 04:20 Baso % (Auto) 0.7 % (0.2-1.0) 04/11/22 04:20 Neut # (Auto) 6.1 x10^3/uL (2.2-4.8) H 04/11/22 04:20 Lymph # (Auto) 0.7 X10^3/uL (1.3-2.9) L 04/11/22 04:20 [place] # (Auto) 0.8 x10^3/uL (0.3-0.8) 04/11/22 04:20 Eos # (Auto) 0.0 x10^3/uL (0.0-0.2) 04/11/22 04:20 Baso # (Auto) 0.1 X10^3/uL (0.0-0.1) 04/11/22 04:20 Absolute Nucleated RBC 0.0 /100WBC 04/11/22 04:20 Total Counted 100 04/11/22 04:20 Neutrophils % (Manual) 54 % (39-76) 04/11/22 04:20 Band Neutrophils % 26 % (0-10) H 04/11/22 04:20 Lymphocytes % (Manual) 9 % (13-43) L 04/11/22 04:20 Monocytes % (Manual) 11 % (4-9) H 04/11/22 04:20 Giant Platelets Rare 04/11/22 04:20 Plt Morphology Comment Abnormal (NORMAL) A 04/11/22 04:20 RBC Morphology Abnormal (NORMAL) A 04/11/22 04:20 Rouleaux Slight A 04/11/22 04:20 Sodium 143 mmol/L (136-145) 04/11/22 04:20 Corrected Sodium TNP 04/11/22 04:20 Potassium 3.8 mmol/L (3.5-5.1) 04/11/22 04:20 Chloride 105 mmol/L (98-107) 04/11/22 04:20 Carbon Dioxide 25.1 mmol/L (21-32) 04/11/22 04:20 BUN 24 mg/dL (7-18) H 04/11/22 04:20 Creatinine 0.78 mg/dL (0.55-1.02) 04/11/22 04:20 Est GFR (MDRD) Af Amer > 60 (>60) 04/11/22 04:20 Est GFR (MDRD) Non-Af > 60 (>60) 04/11/22 04:20 Glucose 84 mg/dL (65-99) 04/11/22 04:20 Calcium 8.2 mg/dL (8.5-10.1) L 04/11/22 04:20 Corrected Calcium 9.3 mg/dL (8.5-10.1) 04/11/22 04:20 Magnesium 2.2 mg/dL (2.0-2.9) 04/11/22 04:20 Total Bilirubin 0.50 mg/dL (0.2-1.0) 04/11/22 04:20 AST 24 Units/L (15-37) 04/11/22 04:20 ALT 18 Units/L (12-78) 04/11/22 04:20 Alkaline Phosphatase 65 Units/L (46-116) 04/11/22 04:20 Troponin I High Sens 17.1 ng/L (4.0-60.0) 04/11/22 16:13 Total Protein 6.2 g/dL (6.4-8.2) L 04/11/22 04:20 Albumin 2.6 g/dL (3.4-5.0) L 04/11/22 04:20 Globulin 3.6 g/dL (2.5-4.5) 04/11/22 04:20 Albumin/Globulin Ratio 0.7 Ratio (1.1-2.1) L 04/11/22 04:20 Amylase 19 Units/L (25-115) L 04/07/22 10:20 Lipase 51 Units/L (73-393) L 04/07/22 10:20 Carcinoembryonic Ag 3.5 ng/mL (<=3.8) 04/07/22 10:20 Specimen Type Catherized urine 04/09/22 15:42 Urine Color Camille (YELLOW) 04/09/22 15:42 Urine Appearance Mucoid (CLEAR) 04/09/22 15:42 Urine pH 6.0 (5.0 - 8.0) 04/09/22 15:42 Ur Specific [place] 1.030 (1.000-1.030) 04/09/22 15:42 Urine Protein 2+ (NEGATIVE) 04/09/22 15:42 Urine Glucose (UA) Negative (NEGATIVE) 04/09/22 15:42 Urine Ketones 4+ (NEGATIVE) 04/09/22 15:42 Urine Blood 2+ (NEGATIVE) 04/09/22 15:42 Urine Nitrite Negative (NEGATIVE) 04/09/22 15:42 Urine Bilirubin 1+ (NEGATIVE) 04/09/22 15:42 Urine Urobilinogen Normal (NORMAL) 04/09/22 15:42 Ur Leukocyte Esterase Negative (NEGATIVE) 04/09/22 15:42 Urine RBC 3-5 /HPF (0-3) A 04/09/22 15:42 Urine WBC None seen /HPF (0-5) 04/09/22 15:42 Ur Squamous Epith Cells Rare /HPF (NEGATIVE) 04/09/22 15:42 Ur Renal Epithelial Cell Rare /HPF (NEGATIVE) 04/09/22 15:42 Urine Bacteria Trace /HPF (NEGATIVE) 04/09/22 15:42 Hyaline Casts Rare /LPF (NEGATIVE) 04/09/22 15:42 Urine Mucus Many /HPF (NEGATIVE) 04/09/22 15:42 Ur Culture Indicated? No/not indicated 04/09/22 15:42 SARS-CoV-2 (PCR) Negative (NEGATIVE) 04/07/22 10:57 Influenza Type A (PCR) Negative (NEGATIVE) 04/07/22 10:57 Influenza Type B (PCR) Negative (NEGATIVE) 04/07/22 10:57 RSV (PCR) Negative (NEGATIVE) 04/07/22 10:57 Tissue Pathology To follow 04/09/22 11:08 Hospital Course: Pt is a 66 year old female presenting with abdominal pain, distention, and decreased bowel movements for the past 2-3 days. Labs/imaging: Wbc 11.7, Hgb 14.2, Plt 311, Na 134, K 3.6, Creatinine 0.85, Glucose 84, CEA pending, UA negative, COVID-19 negative, CTAP was obtained that revealed: Soft tissue density within the sigmoid colon is observed with proximal colonic distension and associated small-bowel air-filled loops are noted. Continued evaluation with direct visualization or correlation with recent colonoscopy is requested. Pt was admitted for colon obstruction. General surgery consulted. Pt has NG tube placed and will be kept NPO. She did have enema yesterday that she felt helped a little and will order another one today. Surgery plan for possible colonoscopy. Continue with current treatment plan. Closely monitor and follow up labs and imaging in the morning. Over the next 2 days patient was treated for pain and nausea successfully. Yesterday she had a flexible sigmoidoscopy that showed a sigmoid colon mass likely colon cancer. It was obstructing. After the patient awakened from anesthesia from the sigmoidoscopy the results were explained to her and her family. They initially were planning on having surgery here the following day but changed her mind and requested to be transferred to a tertiary care center for the surgery and continue care. We were not able to get her transferred yesterday to [facility] in [place], [place] as they did not have any beds. Fortunately today [facility] in [place], [place] has accepted the patient as they have a bed for the patient and we will be transferring her down there later today in stable condition. After [facility] in [place], [place] excepted the patient they called and reported that they did not have a bed at the time and were not able to get her transferred there. The patient then decided they wanted to change surgeons can use Dr. Cabral instead of Dr. Franco for personal reasons. Dr. Cabral saw the patient and planned a colostomy the following day. Unfortunately the patient had gone into atrial for with RVR the following morning therefore general Surgery went ahead and consulted cardiology, Dr. Salcedo for further evaluation. In the meantime I went ahead and started the patient on Cardizem drip per protocol. Dr. Salcedo recommended to go ahead and get the patient transferred to Dr. Flannery who is a special events fundraiser at [facility] in hopes that he could find a bed in which he did later that day. Patient was transferred to [facility] in stable condition. She will have cardiac evaluation prior to surgical clearance for the sigmoid mass causing an obstruction. Patient can follow up with me upon her return from [facility] for hospital follow-up.
== END 2022-04-11 20:15 | disposition short-term general hospital (02) | DRG 390 ==
LOC: ICU 08:41 → ER 08:41 → OBSVTOIN 11:33 → ICU 12:04
PROVIDERS: ADMIT Family Medicine; ATTEND Family Medicine
DX: Z72.0 Tobacco use; J44.9 Chronic obstructive pulmonary disease, unspecified; D37.4 Neoplasm of uncertain behavior of colon; E78.2 Mixed hyperlipidemia; Z20.822 Contact with and (suspected) exposure to COVID-19; K56.609 Unspecified intestinal obstruction, unspecified as to partial versus complete obstruction